=== PATIENT | female | born 1945 | race Two or more races ===

== ENCOUNTER → 2017-09-29 | Outpatient (CLI) | payer OTHER, MEDICAID ==
[~2017-09-29] VITALS: Ht 152.4 cm; Wt 62.6 kg
[~2017-09-29] MED LIST: ADENOSINE 53 MG in GIVE UN-DILUTED 0 ML IV ONE; ADENOSINE 90 MG/30 ML INJ IV ONE; ASPI81CH43 PO; CLON1TAB4 PO; FLUO20CA90 PO; FOLI1TAB6 PO; HYDR-4683 PO; LISI10TA6 PO; OXAP-61 PO; SIMV10TA84 PO
== END | disposition home or self-care (01) ==
LOC: Rad HDHVI 10:29
PROVIDERS: ATTEND Internal Medicine Cardiovascular Disease
DX: I10 Essential (primary) hypertension (principal); D56.9 Thalassemia, unspecified; R60.9 Edema, unspecified; R06.02 Shortness of breath
CPT/HCPCS: 78452; 93005; 96374; 96375; A9500; J0153

== ENCOUNTER → 2017-12-15 | Outpatient (CLI) | payer MEDICARE, MEDICAID ==
[~2017-12-15] MED LIST changes: -ADENOSINE 53 MG in GIVE UN-DILUTED 0 ML IV ONE; -ADENOSINE 90 MG/30 ML INJ IV ONE; +IOHEXOL 350 MG/ML 100ML IJ ONE
[2017-12-15 15:50] VITALS: BP 140/67
[2017-12-15 16:19] VITALS: BP 119/68
== END | disposition home or self-care (01) ==
LOC: Rad HDHVI 15:42
PROVIDERS: ATTEND Internal Medicine Cardiovascular Disease
DX: G93.89 Other specified disorders of brain (principal); I67.2 Cerebral atherosclerosis
CPT/HCPCS: 70470; 82565; G0463; Q9967

== ENCOUNTER → 2017-12-31 | Outpatient (CLI) | payer MEDICARE, MEDICAID ==
[~2017-12-31] MED LIST changes: -IOHEXOL 350 MG/ML 100ML IJ ONE
== END | disposition home or self-care (01) ==
LOC: Rad HDHVI 10:25
PROVIDERS: ATTEND Internal Medicine Cardiovascular Disease
DX: I08.8 Other rheumatic multiple valve diseases (principal); I42.0 Dilated cardiomyopathy; R06.02 Shortness of breath
CPT/HCPCS: 93306

== ENCOUNTER → 2018-06-29 | Outpatient (CLI) | payer MEDICARE, MEDICAID | END | disposition home or self-care (01) | LOC: Rad HDHVI 11:05 | PROVIDERS: ATTEND Internal Medicine Cardiovascular Disease | DX: I70.201 Unspecified atherosclerosis of native arteries of extremities, right leg (principal); M25.461 Effusion, right knee; M85.861 Other specified disorders of bone density and structure, right lower leg; K57.30 Diverticulosis of large intestine without perforation or abscess without bleeding | CPT/HCPCS: 73700 ==

== ENCOUNTER → 2018-07-22 | Outpatient (CLI) | payer MEDICARE, MEDICAID ==
[~2018-07-22] VITALS: Ht 152.4 cm; Wt 53.5 kg
[~2018-07-22] MED LIST changes: +ADENOSINE 45 MG in GIVE UN-DILUTED 0 ML IV ONE; +ADENOSINE 90 MG/30 ML INJ IV ONE
== END | disposition home or self-care (01) ==
LOC: Rad HDHVI 13:07
PROVIDERS: ATTEND Internal Medicine Cardiovascular Disease
DX: D56.9 Thalassemia, unspecified (principal); I11.0 Hypertensive heart disease with heart failure; I50.43 Acute on chronic combined systolic (congestive) and diastolic (congestive) heart failure; F09 Unspecified mental disorder due to known physiological condition; I42.0 Dilated cardiomyopathy; M25.561 Pain in right knee; R41.3 Other amnesia; M25.552 Pain in left hip; R00.2 Palpitations
CPT/HCPCS: 78452; 93005; 96374; 96375; A9500; J0153

== ENCOUNTER → 2018-09-02 | Outpatient (CLI) | payer MEDICARE, MEDICAID ==
[~2018-09-02] MED LIST changes: -ADENOSINE 45 MG in GIVE UN-DILUTED 0 ML IV ONE; -ADENOSINE 90 MG/30 ML INJ IV ONE
[2018-09-02 16:11] LABS: Basophils # (auto) 0.1 uL; Eosinophils # (auto) 0.2 uL; Monocytes # (auto) 0.6 uL
[2018-09-02 16:13] LABS: Basophils % (auto) 1.3 % (0.0-2.0); Hematocrit 30.9 % (36.0-46.0); Hemoglobin 9.4 g/dL (12.2-16.2); Lymphocytes # (auto) 1.7 uL; Lymphocytes % (auto) 29.5 % (10.0-50.0); Mean Corpuscular Hemoglobin 19.5 pg (28.0-32.0); Mean Corpuscular Hgb Conc. 30.6 g/dL (32.0-36.0); Mean Corpuscular Volume 63.7 fL (80.0-100.0); Neutrophils # (auto) 3.3 uL; Neutrophils % (auto) 56.2 % (37.0-80.0); Nucleated Red Blood Cells % 0.4 %; Platelet Count (auto) 379 10^3/uL (140-450); Red Blood Cells 4.84 10^6/uL (4.0-5.20); Red Cell Distribution Width 18.1 % (11.8-14.3); White Blood Cell 5.8 10^3/uL (4.4-10.8)
[2018-09-02 16:20] LABS: Albumin 4.2 g/dL (3.4-5.0); Calcium 9.2 mg/dL (8.5-10.1); Potassium 4.2 mmol/L (3.5-5.1); Urine Blood TRACE /uL (Negative); Urine Specific Gravity 1.025 (1.001-1.035)
[2018-09-02 16:29] LABS: BUN/Creatinine Ratio 35.9; Bilirubin, Total 0.6 mg/dL (0.2-1.0); Free T4 (Free Thyroxine) 1.17 ng/dL (0.89-1.76); Total Protein 7.1 g/dL (6.4-8.2)
== END | disposition home or self-care (01) ==
LOC: LAB 10:50
PROVIDERS: ATTEND Internal Medicine Cardiovascular Disease
DX: E03.9 Hypothyroidism, unspecified (principal); E55.9 Vitamin D deficiency, unspecified; N39.0 Urinary tract infection, site not specified; D51.9 Vitamin B12 deficiency anemia, unspecified; Z79.899 Other long term (current) drug therapy
CPT/HCPCS: 36415; 80053; 80061; 81003; 82306; 82607; 83036; 84439; 84443; 85025; 87086

== ENCOUNTER → 2018-09-08 | Outpatient (CLI) | payer MEDICARE, MEDICAID | END | disposition home or self-care (01) | LOC: Rad HDHVI 11:33 | PROVIDERS: ATTEND Internal Medicine Cardiovascular Disease | DX: K57.30 Diverticulosis of large intestine without perforation or abscess without bleeding (principal); K76.9 Liver disease, unspecified; I70.0 Atherosclerosis of aorta | CPT/HCPCS: 74176 ==

== ENCOUNTER → 2018-09-21 | Outpatient (CLI) | payer MEDICARE, MEDICAID ==
[~2018-09-21] MED LIST changes: +CLON1TAB10 PO; -CLON1TAB4 PO; -HYDR-4683 PO; +HYDR-4833 PO
[2018-09-21 16:12] LABS: % Iron Saturation 19.4 % (15-50)
== END | disposition home or self-care (01) ==
LOC: Rad HDHVI 11:07
PROVIDERS: ATTEND Internal Medicine Cardiovascular Disease
DX: M85.9 Disorder of bone density and structure, unspecified (principal); R53.83 Other fatigue; R79.89 Other specified abnormal findings of blood chemistry
CPT/HCPCS: 77078; 82728; 83540; 83550

== ENCOUNTER → 2018-10-21 | Outpatient (CLI) | payer MEDICARE, MEDICAID | END | disposition home or self-care (01) | LOC: Rad HDHVI 11:08 | PROVIDERS: ATTEND Internal Medicine Cardiovascular Disease | DX: R53.1 Weakness (principal); R00.2 Palpitations; I10 Essential (primary) hypertension | CPT/HCPCS: 93880 ==

== ENCOUNTER → 2018-11-20 | Outpatient (CLI) | payer MEDICARE, MEDICAID ==
[~2018-11-20] MED LIST changes: +IOHEXOL 350 MG/ML 100ML IJ ONE
[2018-11-20 11:25] VITALS: BP 116/52
--- NOTE | 2018-11-20 12:50 | NUR ---
IN TO CLINIC FOR CT HEAD. IV insertion IV access obtained, via clean sterile technique by inserting 22 gauge catheter at after attempt(s). IV secured properly. No trauma to site. Patient tolerated procedure well.LABS DRAWN AND SENT FOR STAT RESULTS. CREATININE RETURNED AT 0.68. TO CT SCAN AND TOLERATED WELL. IV SITE DCD AND BENIGN POST USE. DISCHARGED TO SELF CARE IN NO DISTRESS .
[2018-11-20 12:51] VITALS: BP 148/56
== END | disposition home or self-care (01) ==
LOC: Rad HDHVI 11:14
PROVIDERS: ATTEND Internal Medicine Cardiovascular Disease
DX: I67.2 Cerebral atherosclerosis (principal); R94.4 Abnormal results of kidney function studies; R41.3 Other amnesia
CPT/HCPCS: 36415; 70470; 82565; G0463; Q9967

== ENCOUNTER → 2018-12-21 | Outpatient (CLI) | payer MEDICARE, MEDICAID ==
[~2018-12-21] MED LIST changes: -IOHEXOL 350 MG/ML 100ML IJ ONE
[2018-12-21 13:00] VITALS: BP 148/70
--- NOTE | 2018-12-21 13:00 | NUR ---
Signature Attestation Statement: I HARIS MCCLOUD performed this procedure EECP on this patient. Addendum: 12/21/18 at 1301 by HARIS MCCLOUD [id number] Amended: Links added.
--- NOTE | 2018-12-21 13:06 | NUR ---
Signature Attestation Statement: I HARIS MCCLOUD performed this procedure EECP on this patient. Addendum: 12/21/18 at 1307 by HARIS MCCLOUD [id number] Amended: Links added.
[2018-12-21 13:07] VITALS: BP 144/70
--- NOTE | 2018-12-21 13:08 | NUR ---
Signature Attestation Statement: I HARIS MCCLOUD performed this procedure EECP on this patient. Addendum: 12/21/18 at 1308 by HARIS MCCLOUD [id number] Amended: Links added.
== END | disposition home or self-care (01) ==
LOC: CHF HDHVI 11:00
PROVIDERS: ATTEND Internal Medicine Cardiovascular Disease
DX: I25.708 Atherosclerosis of coronary artery bypass graft(s), unspecified, with other forms of angina pectoris (principal); I11.0 Hypertensive heart disease with heart failure; I50.42 Chronic combined systolic (congestive) and diastolic (congestive) heart failure; I63.9 Cerebral infarction, unspecified; I63.81 Other cerebral infarction due to occlusion or stenosis of small artery; E78.5 Hyperlipidemia, unspecified; Z95.1 Presence of aortocoronary bypass graft
CPT/HCPCS: G0166

== ENCOUNTER 2019-03-31 13:26 | Emergency (ER) | payer MEDICARE, MEDICAID ==
[~2019-03-31] VITALS: Ht 152.4 cm; Wt 47.6 kg
[2019-03-31] MEDS ORDERED: SODIUM CHLORIDE 0.9% 1,000 ML IV ONE ×2 (14:15→15:12)
[2019-03-31 15:01] LABS: Mean Corpuscular Hgb Conc. 31.1 g/dL (32.0-36.0)
[2019-03-31 15:02] LABS: Hematocrit 35.3 % (36.0-46.0); Mean Corpuscular Hemoglobin 19.3 pg (28.0-32.0); Mean Corpuscular Volume 62.1 fL (80.0-100.0); Platelet Count (auto) 380 10^3/uL (140-450); Red Blood Cells 5.69 10^6/uL (4.0-5.20); Red Cell Distribution Width 17.1 % (11.8-14.3); White Blood Cell 11.2 10^3/uL (4.4-10.8)
[2019-03-31 15:11] LABS: Albumin 4.1 g/dL (3.4-5.0); Anion Gap 12 (5-15); Blood Urea Nitrogen 25 mg/dL (7-18); Calcium 8.6 mg/dL (8.5-10.1); Carbon Dioxide 22 mmol/L (21-32); Chloride 108 mmol/L (98-107); Glucose 78 mg/dL (74-106); Potassium 3.5 mmol/L (3.5-5.1); Sodium 142 mmol/L (136-145)
[2019-03-31] MEDS ORDERED: SODIUM CHLORIDE 0.9% 1,000 ML IVB ONE (15:12)
[2019-03-31 15:14] LABS: Alanine Aminotransferase 16 U/L (13-56); Aspartate Aminotransferase 17 U/L (15-37); BUN/Creatinine Ratio 29.8; Basophils % (manual) 0 (0.0-2.0); Blast Cells 0; Eosinophils % (manual) 0 (0-7); GFR African American 85 mL/min; GFR Non-African American 70 mL/min; Metamyelocytes % 0; Myelocytes % 0; Promyelocytes % 0; Reactive Lymphocytes 0
[2019-03-31 15:20] LABS: Alkaline Phosphatase 42 U/L (45-117); Bilirubin, Total 0.6 mg/dL (0.2-1.0); Total Protein 7.3 g/dL (6.4-8.2)
[2019-03-31 16:48] LABS: Lymphocytes % (manual) 16 (10.0-50.0); Monocytes % (manual) 4 (0-12)
[2019-03-31 16:49] LABS: Band Neutrophils % (manual) 0
[2019-03-31 19:02] LABS: Urine Bacteria NONE SEEN /hpf (None Seen); Urine Blood Negative /uL (Negative); Urine Hyaline Cast MOD /lpf (0 - 2); Urine Mucus FEW (None Seen); Urine Specific Gravity 1.013 (1.001-1.035); Urine WBC 2 /hpf (0 - 5)
[2019-03-31 19:30] VITALS: BP 103/43
== END 2019-03-31 20:31 | disposition home or self-care (01) ==
LOC: ER 13:26
DX: S33.5XXA Sprain of ligaments of lumbar spine, initial encounter (principal); E87.6 Hypokalemia; R19.7 Diarrhea, unspecified; E78.5 Hyperlipidemia, unspecified; I10 Essential (primary) hypertension; Z79.899 Other long term (current) drug therapy; X58.XXXA Exposure to other specified factors, initial encounter; Y93.89 Activity, other specified; Y92.89 Other specified places as the place of occurrence of the external cause; Y99.8 Other external cause status
CPT/HCPCS: 36415; 71046; 72131; 80053; 81001; 83735; 84443; 84484; 85007; 85027; 93005; 96360; 99284; J7030

== ENCOUNTER → 2019-05-10 | Outpatient (CLI) | payer MEDICARE, MEDICAID ==
[2019-05-10 12:02] LABS: Urine Blood Negative /uL (Negative); Urine Specific Gravity 1.021 (1.001-1.035)
[2019-05-10 12:11] LABS: Potassium 3.8 mmol/L (3.5-5.1)
[2019-05-10 12:15] LABS: Basophils # (auto) 0.1 10 ^3/uL (0-0.2); Basophils % (auto) 1.3 % (0.0-2.0); Eosinophils # (auto) 0.2 10 ^3/uL (0-0.8); Eosinophils % (auto) 2.4 % (0.0-7.0); Hematocrit 31.6 % (36.0-46.0); Hemoglobin 9.8 g/dL (12.2-16.2); Lymphocytes # (auto) 2.8 10 ^3/uL (0.4-5.4); Lymphocytes % (auto) 40.9 % (10.0-50.0); Mean Corpuscular Hemoglobin 19.3 pg (28.0-32.0); Mean Corpuscular Hgb Conc. 31.1 g/dL (32.0-36.0); Mean Corpuscular Volume 62.2 fL (80.0-100.0); Monocytes # (auto) 0.4 10 ^3/uL (0-1.3); Monocytes % (auto) 5.2 % (0.0-12.0); Neutrophils # (auto) 3.5 10 ^3/uL (1.6-8.6); Neutrophils % (auto) 50.2 % (37.0-80.0); Nucleated Red Blood Cells % 0.2 %; Platelet Count (auto) 432 10^3/uL (140-450); Red Blood Cells 5.08 10^6/uL (4.0-5.20); Red Cell Distribution Width 17.2 % (11.8-14.3); White Blood Cell 6.9 10^3/uL (4.4-10.8)
[2019-05-10 12:20] LABS: Free T4 (Free Thyroxine) 1.1 ng/dL (0.89-1.76)
[2019-05-10 12:21] LABS: BUN/Creatinine Ratio 28.6; Bilirubin, Total 0.5 mg/dL (0.2-1.0); Calcium 8.9 mg/dL (8.5-10.1)
== END | disposition home or self-care (01) ==
LOC: LAB 09:52
PROVIDERS: ATTEND Internal Medicine Cardiovascular Disease
DX: E03.9 Hypothyroidism, unspecified (principal); K90.9 Intestinal malabsorption, unspecified; N39.0 Urinary tract infection, site not specified; D51.9 Vitamin B12 deficiency anemia, unspecified; Z79.899 Other long term (current) drug therapy
CPT/HCPCS: 36415; 80053; 80061; 81003; 82306; 82607; 83036; 84439; 84443; 85025; 87086

== ENCOUNTER → 2019-05-24 | Outpatient (CLI) | payer MEDICARE, MEDICAID | END | disposition home or self-care (01) | LOC: Rad HDHVI 15:38 | PROVIDERS: ATTEND Internal Medicine Cardiovascular Disease | DX: M12.88 Other specific arthropathies, not elsewhere classified, other specified site (principal); M48.02 Spinal stenosis, cervical region; K57.30 Diverticulosis of large intestine without perforation or abscess without bleeding; M51.86 Other intervertebral disc disorders, lumbar region | CPT/HCPCS: 72131; 73700 ==

== ENCOUNTER → 2019-05-27 | Outpatient (CLI) | payer MEDICARE, MEDICAID ==
[2019-05-27 14:29] VITALS: BP 124/61
--- NOTE | 2019-05-27 15:15 | NUR ---
Discharge Instructions See e-MAR for any mediations given with this visit. Patient education given on disease process. Patient verbalized understanding. Previous labs reviewed. Patient discharged in stable condition with after care instructions and follow up appointment. COPY OF EKG GIVEN TO PT AND F/U APPOINTMENT MADE ON 06/04/19 @3907
[2019-05-27 17:23] VITALS: BP 130/60
--- NOTE | 2019-05-28 14:29 | NUR ---
CHF PT ARRIVED TO THE CHF CLINIC FOR TREATMENT REGARDING PALPITATIONS. A/O X4. Addendum: 05/28/19 at 1451 by MARIAN ESTEVES RN RN [place] 05/27/19
--- NOTE | 2019-05-28 14:30 | NUR ---
MD at bedside. MD at bedside for evaluation and treatment for acute episode. Further orders received and carried out. PER MD ORDERS EKG DONE AT BEDSIDE. MD ALSO DID MEDICATION RECONCILIATION WITH PATIENT Addendum: 05/28/19 at 1451 by MARIAN ESTEVES RN RN [place] 05/27/19 Addendum: 05/28/19 at 1459 by MARIAN ESTEVES RN RN [place] EKG SHOWS NSR WITH BBB
== END | disposition home or self-care (01) ==
LOC: CHF HDHVI 14:16
PROVIDERS: ATTEND Internal Medicine Cardiovascular Disease
DX: R00.2 Palpitations (principal)
CPT/HCPCS: G0463

== ENCOUNTER → 2019-06-21 | Outpatient (CLI) | payer MEDICARE, MEDICAID ==
[~2019-06-21] MED LIST changes: +IBUP800T24 PO; +ICOS1CAP PO; +LISI-648 PO; -LISI10TA6 PO; +POTA10TA32 PO; +SACU1TAB PO
== END | disposition home or self-care (01) ==
LOC: RADONC 13:05
PROVIDERS: ATTEND Internal Medicine Cardiovascular Disease
DX: M19.011 Primary osteoarthritis, right shoulder (principal); M25.519 Pain in unspecified shoulder
CPT/HCPCS: 73030

== ENCOUNTER → 2019-08-20 | Emergency (ER) | payer MEDICARE, MEDICAID ==
[~2019-08-20] VITALS: Ht 154.9 cm; Wt 45.4 kg
[~2019-08-20] MED LIST changes: +ACET1CAP14 PO; +PANT40TA2 PO
[2019-08-20 12:27] LABS: Eosinophils # (auto) 0.1 10 ^3/uL (0-0.8); Monocytes # (auto) 0.6 10 ^3/uL (0-1.3); Monocytes % (auto) 9.7 % (0.0-12.0); Nucleated Red Blood Cells % 0.2 %
[2019-08-20 12:31] LABS: Basophils # (auto) 0 10 ^3/uL (0-0.2); Basophils % (auto) 0.7 % (0.0-2.0); Eosinophils % (auto) 1.5 % (0.0-7.0); Hematocrit 32.7 % (36.0-46.0); Hemoglobin 10.3 g/dL (12.2-16.2); Lymphocytes # (auto) 1.6 10 ^3/uL (0.4-5.4); Lymphocytes % (auto) 25.2 % (10.0-50.0); Mean Corpuscular Hemoglobin 19.7 pg (28.0-32.0); Mean Corpuscular Hgb Conc. 31.5 g/dL (32.0-36.0); Mean Corpuscular Volume 62.6 fL (80.0-100.0); Neutrophils # (auto) 3.9 10 ^3/uL (1.6-8.6); Neutrophils % (auto) 62.9 % (37.0-80.0); Platelet Count (auto) 355 10^3/uL (140-450); Red Blood Cells 5.22 10^6/uL (4.0-5.20); Red Cell Distribution Width 16.2 % (11.8-14.3); White Blood Cell 6.2 10^3/uL (4.4-10.8)
[2019-08-20 12:43] LABS: Alanine Aminotransferase 19 U/L (13-56); Albumin 3.9 g/dL (3.4-5.0); Anion Gap 9 (5-15); Aspartate Aminotransferase 16 U/L (15-37); BUN/Creatinine Ratio 47.8; Blood Urea Nitrogen 32 mg/dL (7-18); Calcium 8.9 mg/dL (8.5-10.1); Carbon Dioxide 21 mmol/L (21-32); Chloride 109 mmol/L (98-107); GFR African American 110 mL/min; GFR Non-African American 91 mL/min; Glucose 101 mg/dL (74-106); Magnesium 2.3 mg/dL (1.6-2.6); Sodium 139 mmol/L (136-145)
[2019-08-20 12:48] LABS: Alkaline Phosphatase 35 U/L (45-117); Bilirubin, Total 0.6 mg/dL (0.2-1.0); Total Protein 6.7 g/dL (6.4-8.2)
[2019-08-20 13:20] LABS: INR 1.01 (0.9-1.15)
[2019-08-20 13:43] VITALS: BP 99/63
[2019-08-20 15:09] LABS: Urine Bacteria NONE SEEN /hpf (None Seen); Urine Blood Negative /uL (Negative); Urine Specific Gravity 1.011 (1.001-1.035); Urine WBC <1 /hpf (0 - 5)
== END | disposition home or self-care (01) ==
LOC: ER 11:22
DX: E86.0 Dehydration (principal); I95.9 Hypotension, unspecified; I10 Essential (primary) hypertension; E78.5 Hyperlipidemia, unspecified
CPT/HCPCS: 36415; 70450; 71045; 80053; 81001; 83735; 84484; 85025; 85610; 93005

== ENCOUNTER → 2019-09-20 | Outpatient (CLI) | payer MEDICARE, MEDICAID ==
[~2019-09-20] MED LIST changes: -ACET1CAP14 PO; -IBUP800T24 PO; -ICOS1CAP PO; -LISI-648 PO; +LISI10TA6 PO; -PANT40TA2 PO; -POTA10TA32 PO; -SACU1TAB PO
== END | disposition home or self-care (01) ==
LOC: Rad HDHVI 11:42
PROVIDERS: ATTEND Internal Medicine Cardiovascular Disease
DX: M19.011 Primary osteoarthritis, right shoulder (principal); M25.511 Pain in right shoulder
CPT/HCPCS: 73030

== ENCOUNTER 2019-11-22 11:59 | Inpatient (IN) | payer MEDICARE, MEDICAID ==
[~2019-11-22] VITALS: Ht 154.9 cm; Wt 45.1 kg
[~2019-11-22 11:59] MED LIST changes: +LISI-648 PO; -LISI10TA6 PO
[2019-11-22 14:06] LABS: Eosinophils # (auto) 0 10 ^3/uL (0-0.8); Eosinophils % (auto) 0.2 % (0.0-7.0); Nucleated Red Blood Cells % 0.1 %; Red Blood Cells 2.86 10^6/uL (4.0-5.20)
[2019-11-22 14:08] LABS: Basophils # (auto) 0 10 ^3/uL (0-0.2); Basophils % (auto) 0.4 % (0.0-2.0); Hematocrit 17.7 % (36.0-46.0); Lymphocytes # (auto) 0.8 10 ^3/uL (0.4-5.4); Lymphocytes % (auto) 7.7 % (10.0-50.0); Mean Corpuscular Hemoglobin 19.8 pg (28.0-32.0); Mean Corpuscular Volume 61.8 fL (80.0-100.0); Monocytes % (auto) 9.6 % (0.0-12.0); Neutrophils % (auto) 82.1 % (37.0-80.0); Platelet Count (auto) 614 10^3/uL (140-450); Red Cell Distribution Width 18.9 % (11.8-14.3); White Blood Cell 10.9 10^3/uL (4.4-10.8)
[2019-11-22 14:12] LABS: Hemoglobin 5.6 g/dL (12.2-16.2)
[2019-11-22 14:23] LABS: Albumin 3.2 g/dL (3.4-5.0); Anion Gap 9 (5-15); Blood Urea Nitrogen 46 mg/dL (7-18); Carbon Dioxide 22 mmol/L (21-32); Chloride 106 mmol/L (98-107); Glucose 115 mg/dL (74-106); Potassium 4.1 mmol/L (3.5-5.1); Sodium 137 mmol/L (136-145)
[2019-11-22 14:28] LABS: Alanine Aminotransferase 10 U/L (13-56); Alkaline Phosphatase 30 U/L (45-117); Aspartate Aminotransferase 11 U/L (15-37); Bilirubin, Total 0.3 mg/dL (0.2-1.0); GFR African American 77 mL/min; GFR Non-African American 63 mL/min
[2019-11-22] MEDS ORDERED: MORPHINE SULF INJ 2 MG/ML SYRINGE 1ML IV PRN (16:15)
[2019-11-22] MEDS ORDERED: NITROGLYCERIN 0.4 MG SL TAB SL PRN (16:15)
[2019-11-22] MEDS ORDERED: DOCUSATE SOD 100 MG CAP PO PRN (16:15)
[2019-11-22] MEDS ORDERED: ONDANSETRON HCL 4 MG/2 ML VIAL IV PRN (16:15)
[2019-11-22] MEDS ORDERED: SACU1TAB PO (16:58)
[2019-11-22] MEDS ORDERED: ICOS1CAP PO (16:58)
[2019-11-22 17:21] LABS: Urine Bacteria FEW /hpf (None Seen); Urine Blood Negative /uL (Negative); Urine Mucus FEW (None Seen); Urine Specific Gravity 1.018 (1.001-1.035); Urine WBC 9 /hpf (0 - 5)
[2019-11-22 18:19] VITALS: BP 129/70
[2019-11-22] MEDS ORDERED: IBUP800T24 PO (18:21)
[2019-11-22] MEDS ORDERED: POTA10TA32 PO (18:21)
[2019-11-22 18:34] VITALS: BP 136/75
--- NOTE | 2019-11-22 19:10 | NUR ---
Telemetry admit from ER ALYSHA TREJOONSINA admitted to Telemetry unit after SBAR received. Patient oriented to DONALD EUGENE, RN primary RN, unit, room, bed, and unit policies regarding patient care and visiting hours. Patient now on continuous telemetry monitoring, tele box # 51 and telemetry reading on arrival to unit is sinus rhythm. Patient weighed by bedscale and encouraged to call if they need something. All questions and concerns addressed, patient verbalized understanding.
[2019-11-22 19:34] VITALS: BP 119/60
--- NOTE | 2019-11-22 19:40 | NUR ---
CLOSING NOTE ENDORSED CARE TO NOC SHIFT RN
--- NOTE | 2019-11-22 19:58 | NUR ---
Opening Shift Note Assumed care of patient from day shift Raphael JESUS. Patient awake and alert. 1U RBC infusing at 125ml/hr. No S/S of distress/SOB or pain. Bed locked in lowest position, bed rails up X2, call light within reach, bed alarm on. Instructed on POC and to call for assist PRN, will continue to monitor for changes Q1hr and PRN.
[2019-11-22 20:00] VITALS: BP 122/67
[2019-11-22 20:34] VITALS: BP 122/67
[2019-11-22] MEDS: ACETAMINOPHEN 325 MG TAB PO PRN (20:56)
[2019-11-22] MEDS: EPA ETHYL ESTER 1 GM PO SCH (22:00)
[2019-11-22] MEDS ORDERED: SACUBITRIL-VALSARTAN 24mg/26mg TAB PO SCH (22:00)
[2019-11-22 22:19] LABS: Hemoglobin 7.1 g/dL (12.2-16.2)
[2019-11-22 22:21] LABS: Hematocrit 21.1 % (36.0-46.0)
--- NOTE | 2019-11-22 22:40 | NUR ---
PATIENT STATUS PATIENT STATES "I NEED TO FIND MY ROOM, THIS IS NOT MY HOME". PATIENT WALKING OUT TO HALLWAY STATING "I AM GOING HOME". WILL CHANGE PATIENTS ROOM TO 289A WITH A SITTER.
--- NOTE | 2019-11-22 23:00 | NUR ---
ROOM CHANGE MOVED PATIENT FROM ROOM 278B TO 289A. SITTER AT BEDSIDE.
[2019-11-23] VITALS (12 sets, daily range): BP systolic 91–139; BP diastolic 56–79
--- NOTE | 2019-11-23 | NUR ---
LAB PATIENT REFUSED LAB
[2019-11-23] MEDS: cefTRIAXone 1GM/50ML D5W 50 ML IV SCH ×2 (00:08→20:51)
[2019-11-23 07:07] LABS: Basophils # (auto) 0 10 ^3/uL (0-0.2); Basophils % (auto) 0.3 % (0.0-2.0); Eosinophils # (auto) 0 10 ^3/uL (0-0.8); Eosinophils % (auto) 0.5 % (0.0-7.0); Hematocrit 21.7 % (36.0-46.0); Lymphocytes # (auto) 1.1 10 ^3/uL (0.4-5.4); Lymphocytes % (auto) 10.6 % (10.0-50.0); Mean Corpuscular Hemoglobin 20.9 pg (28.0-32.0); Mean Corpuscular Hgb Conc. 31.9 g/dL (32.0-36.0); Mean Corpuscular Volume 65.6 fL (80.0-100.0); Monocytes # (auto) 1.2 10 ^3/uL (0-1.3); Monocytes % (auto) 11.4 % (0.0-12.0); Neutrophils # (auto) 7.9 10 ^3/uL (1.6-8.6); Neutrophils % (auto) 77.2 % (37.0-80.0); Nucleated Red Blood Cells % 0.1 %; Platelet Count (auto) 564 10^3/uL (140-450); Potassium 3.9 mmol/L (3.5-5.1); White Blood Cell 10.2 10^3/uL (4.4-10.8)
[2019-11-23 07:22] LABS: BUN/Creatinine Ratio 53.3; Bilirubin, Total 0.2 mg/dL (0.2-1.0); Calcium 8.7 mg/dL (8.5-10.1); Total Protein 6.3 g/dL (6.4-8.2)
[2019-11-23 07:26] LABS: % Iron Saturation 13.2 % (15-50)
--- NOTE | 2019-11-23 07:35 | NUR ---
ENDORSED CARE TO DAY SHIFT BERTA. BED LOCKED IN LOWEST POSITION, SIDE RAILS UP X2, CALL LIGHT WITHIN REACH. NO SIGNS OF DISTRESS/ SOB.
[2019-11-23 08:04] LABS: Hemoglobin 6.9 g/dL (12.2-16.2); Red Cell Distribution Width 21.4 % (11.8-14.3)
[2019-11-23] MEDS: EPA ETHYL ESTER 1 GM PO SCH ×2 (10:00→21:02)
[2019-11-23] MEDS ORDERED: ASPirin 81 mg TAB PO SCH (10:00)
[2019-11-23] MEDS ORDERED: HYDROmorphone HCL 2 MG/ML VL IV ONE (10:30)
[2019-11-23] MEDS: PANTOPRAZOLE 40 MG/10 ML VIAL INJ IV SCH ×2 (10:42→20:50)
[2019-11-23] MEDS ORDERED: SODIUM FERR GLUC 62.5MG/5ML 125 MG in SODIUM CHL 0.9% 100 ML IV ONE (13:30)
[2019-11-23] MEDS: CYANOCOBALAMIN (B-12) 1000 MCG/1 ML VIAL SUBCUT SCH (13:31)
--- NOTE | 2019-11-23 19:20 | NUR ---
Opening Shift Note Assumed care of patient, awake and alert. Blood transfusion currently running, vitals signs 108/60, 98.3 temp, 70 bpm, 16 rr, 100% oxygen saturation on room air. No S/S of distress/SOB or pain. Bed locked in lowest position, side rails up x2, call light within reach. Instructed on POC and to call for assist PRN, will continue to monitor for changes Q1hr and PRN.
[2019-11-23] MEDS: SUCRALFATE 1 GM/10 ML ORAL SUSP PO SCH (21:19)
--- NOTE | 2019-11-23 23:30 | NUR ---
LAB PATIENT REFUSED BLOOD DRAW FROM LAB. EDUCATED ON THE NEED FOR BLOOD DRAW AND PATIENT STATES "I DO NOT FEEL COMFORTABLE WITH HIM TAKING MY BLOOD"
[2019-11-24] MEDS: SUCRALFATE 1 GM/10 ML ORAL SUSP PO SCH ×5 (05:08→22:00)
[2019-11-24 05:30] VITALS: BP 139/79
--- NOTE | 2019-11-24 06:01 | NUR ---
LAB PATIENT REFUSED LAB. EDUCATED ON IMPORTANCE OF BLOOD DRAW. PATIENT BECAME AGITATED AND CONTINUES TO REFUSE.
--- NOTE | 2019-11-24 07:30 | NUR ---
Endorsed care to Maria Del Rosario JESUS. Patient sitting at bed side. No signs of distress
--- NOTE | 2019-11-24 08:00 | NUR ---
Patient refuses to wear tele monitor, patient agitated will try again later, is aware.
[2019-11-24] MEDS: EPA ETHYL ESTER 1 GM PO SCH ×2 (08:08→21:23)
[2019-11-24] MEDS: PANTOPRAZOLE 40 MG/10 ML VIAL INJ IV SCH ×2 (08:08→21:23)
[2019-11-24] MEDS: CYANOCOBALAMIN (B-12) 1000 MCG/1 ML VIAL SUBCUT SCH (08:08)
[2019-11-24] MEDS: ALPRAZolam 0.25 MG TAB PO ONE ×2 (08:08→09:25)
--- NOTE | 2019-11-24 08:16 | NUR ---
Patient refuses to allow lab to draw blood. Patient also refusing to take xanax.
--- NOTE | 2019-11-24 10:11 | NUR ---
blood drawn by lab.
--- NOTE | 2019-11-24 10:11 | NUR ---
updated Dr Celestine Law on patient status (refusing treatment, may not allow the EGD).
[2019-11-24 10:46] LABS: Basophils # (auto) 0.1 10 ^3/uL (0-0.2); Basophils % (auto) 0.5 % (0.0-2.0); Eosinophils # (auto) 0.2 10 ^3/uL (0-0.8); Eosinophils % (auto) 1.9 % (0.0-7.0); Hematocrit 27.6 % (36.0-46.0); Hemoglobin 9.2 g/dL (12.2-16.2); Lymphocytes # (auto) 1.4 10 ^3/uL (0.4-5.4); Lymphocytes % (auto) 12.8 % (10.0-50.0); Mean Corpuscular Hemoglobin 23.1 pg (28.0-32.0); Mean Corpuscular Hgb Conc. 33.5 g/dL (32.0-36.0); Monocytes % (auto) 9.5 % (0.0-12.0); Neutrophils # (auto) 8.2 10 ^3/uL (1.6-8.6); Neutrophils % (auto) 75.3 % (37.0-80.0); Nucleated Red Blood Cells % 0.4 %; Platelet Count (auto) 662 10^3/uL (140-450); Red Cell Distribution Width 24.2 % (11.8-14.3); White Blood Cell 10.9 10^3/uL (4.4-10.8)
[2019-11-24 11:38] LABS: Folate (Folic Acid) > 24.00 ng/mL (5.38-24)
[2019-11-24] MEDS: SODIUM FERR GLUC 62.5MG/5ML 125 MG in SODIUM CHL 0.9% 100 ML IV SCH (11:59)
--- NOTE | 2019-11-24 12:00 | NUR ---
Patient continues off tele monitor, she states she doesn't want people watching her, educated but patient refuses. Dr henry.
[2019-11-24 12:21] LABS: INR 1.03 (0.9-1.15); Partial Thromboplastin Time 25.7 sec (23.0-31.2)
--- NOTE | 2019-11-24 12:30 | NUR ---
Patient verbalized willingness to do EGD. Patient oriented x2 at this time, person and place.
[2019-11-24] MEDS ORDERED: LIDOCAINE VISCOUS 2% 15ML UD ONE (12:34)
[2019-11-24] MEDS ORDERED: SODIUM CHLORIDE LOCK 10 ML ONE (12:34)
[2019-11-24] MEDS ORDERED: diphenhdrAMINE HCL 50 MG/1 ML VL ONE (12:35)
[2019-11-24 13:00] VITALS: BP 96/54
--- NOTE | 2019-11-24 13:35 | NUR ---
Patient taken down to EGD.
[2019-11-24] MEDS: fentaNYL CITRATE 100 MCG/2 ML VL ONE ×2 (14:28→14:30)
[2019-11-24] MEDS: MIDAZOLAM HCL 5 MG/ML-1ML VIAL ONE ×2 (14:28→14:35)
--- NOTE | 2019-11-24 15:00 | NUR ---
Patient back from EGD.
[2019-11-24 17:00] VITALS: BP 91/61
--- NOTE | 2019-11-24 19:10 | NUR ---
Opening Shift Note Assumed care of patient, awake and alert x2. No S/S of distress/SOB or pain. Confuse and agitated at this time. Going out of the room. Walking to the hallway without mask despite of education given. Patient said she doesn't want somebody on her house. Reorient the patient that she is at [facility]. Patient has a sitter. will continue to monitor for changes Q1hr and PRN.
--- NOTE | 2019-11-24 19:50 | NUR ---
Patient out of the room. confused, agitated and restless. Sitter also with the patient.
--- NOTE | 2019-11-24 20:30 | NUR ---
Paged the hosptalist. Waiting for callback.
--- NOTE | 2019-11-24 20:50 | NUR ---
Patient is restless and agitated, getting out of the room. So confused. Sitter and CN Charmaine with the patient right now.
--- NOTE | 2019-11-24 21:15 | NUR ---
Obtained medication order from hospitalist josé luis. Please see emar.
[2019-11-24] MEDS: cefTRIAXone 1GM/50ML D5W 50 ML IV SCH (21:23)
--- NOTE | 2019-11-24 22:22 | NUR ---
Patient asleep right now. Refused to take carafate due eli and josé luis.
[2019-11-24] MEDS: clonazePAM 0.5 MG TAB PO PRN (22:38)
--- NOTE | 2019-11-24 22:58 | NUR ---
Monitoring the patient. Patient asleep with sitter at bedside.
--- NOTE | 2019-11-25 01:25 | NUR ---
Placed back tele monitor. Patient no complains at this time.
[2019-11-25 05:00] VITALS: BP 115/66
--- NOTE | 2019-11-25 05:58 | NUR ---
PATIENT AWAKE. WALKING AROUND THE ROOM. CONFUSED. WITH SITTER INSIDE THE ROOM.
[2019-11-25] MEDS: SUCRALFATE 1 GM/10 ML ORAL SUSP PO SCH ×4 (06:14→21:30)
--- NOTE | 2019-11-25 06:45 | NUR ---
PATIENT RESTING IN BED. REFUSED SCHEDULED MEDS.
--- NOTE | 2019-11-25 06:56 | NUR ---
CLOSING SHIFT EVENT PATIENT RESTING IN BED RIGHT NOW. AWAKE AND RESPONSIVE. CONFUSED AND DISORIENTED. NO SOB AND NO ACUTE SIGNS OF DISTRESS. SITTER AT BEDSIDE. REPORT GIVEN.
--- NOTE | 2019-11-25 08:25 | NUR ---
Opening Shift Note Assumed care of patient, awake and alert using the restroom upon entering the room. A/O x 2. No S/S of distress/SOB or pain. Instructed on POC and to call for assist PRN. Patient verbalized understanding. Will continue to monitor for changes Q1hr and PRN.
[2019-11-25 09:00] VITALS: BP 118/67
[2019-11-25] MEDS: PANTOPRAZOLE 40 MG/10 ML VIAL INJ IV SCH ×2 (09:58→21:30)
[2019-11-25] MEDS: CYANOCOBALAMIN (B-12) 1000 MCG/1 ML VIAL SUBCUT SCH (09:59)
[2019-11-25] MEDS: EPA ETHYL ESTER 1 GM PO SCH ×2 (10:00→22:00)
[2019-11-25] MEDS: SODIUM FERR GLUC 62.5MG/5ML 125 MG in SODIUM CHL 0.9% 100 ML IV SCH (12:17)
[2019-11-25 12:48] VITALS: BP 101/62
--- NOTE | 2019-11-25 13:24 | NUR ---
IV removal IV DC'd with sterile technique due to infiltration. Catheter fully in tact. Ice packs were applied and the arm was elevated. 22g placed in right forearm with sterile technique. Patient tolerated procedure well. Iron infusion restarted. Will continue to monitor the patient. NOTE:
--- NOTE | 2019-11-25 16:02 | NUR ---
Nutrition Assessment Notes Please refer to link for full assessment notes. Est Energy needs: 996-1145 kcals (20-23 kcal/kgBW) Est Protein needs: 50-55 gms/day (1.0-1.1 gm/kgBW) Will continue to monitor and reassess prn. Addendum: 11/25/19 at [address] Amended: Links added.
[2019-11-25 16:33] VITALS: BP 102/60
--- NOTE | 2019-11-25 19:30 | NUR ---
OPENING SHIFT NOTE Pt is resting in bed with eyes open and resp rate is even and unlabored. No s/s of any distress noted at this time. POC discussed with pt and pt verbalizes understanding. Pt is forgetful and does need reinforcement. Sitter is at bedside for pt safety. Bed is low, wheels are locked, and call light is with in reach.
[2019-11-25 21:00] VITALS: BP 101/77
[2019-11-25] MEDS: ACETAMINOPHEN 325 MG TAB PO PRN (21:31)
[2019-11-26 04:40] VITALS: BP 112/70
--- NOTE | 2019-11-26 07:30 | NUR ---
Opening Shift Note Assumed care of patient, awake and alert. A/O x 2. No S/S of distress/SOB or pain. Instructed on POC and to call for assist PRN. Patient verbalized understanding. Sitter at bed side for safety. Will continue to monitor for changes Q1hr and PRN.
[2019-11-26 09:00] VITALS: BP 97/60
[2019-11-26 09:05] LABS: Basophils # (auto) 0 10 ^3/uL (0-0.2); Eosinophils # (auto) 0.2 10 ^3/uL (0-0.8); Hemoglobin 8.6 g/dL (12.2-16.2); Neutrophils # (auto) 8.1 10 ^3/uL (1.6-8.6); Nucleated Red Blood Cells % 0.1 %
[2019-11-26 09:07] LABS: Basophils % (auto) 0.5 % (0.0-2.0); Eosinophils % (auto) 1.8 % (0.0-7.0); Hematocrit 25.6 % (36.0-46.0); Lymphocytes # (auto) 1.3 10 ^3/uL (0.4-5.4); Lymphocytes % (auto) 12.1 % (10.0-50.0); Mean Corpuscular Hemoglobin 23.1 pg (28.0-32.0); Mean Corpuscular Hgb Conc. 33.5 g/dL (32.0-36.0); Mean Corpuscular Volume 69.1 fL (80.0-100.0); Monocytes # (auto) 0.7 10 ^3/uL (0-1.3); Monocytes % (auto) 7.2 % (0.0-12.0); Neutrophils % (auto) 78.4 % (37.0-80.0); Platelet Count (auto) 670 10^3/uL (140-450); White Blood Cell 10.4 10^3/uL (4.4-10.8)
[2019-11-26 09:14] LABS: Red Cell Distribution Width 25.3 % (11.8-14.3)
[2019-11-26] MEDS: SUCRALFATE 1 GM/10 ML ORAL SUSP PO SCH ×4 (09:15→22:02)
[2019-11-26] MEDS: PANTOPRAZOLE 40 MG/10 ML VIAL INJ IV SCH ×2 (09:15→22:02)
[2019-11-26] MEDS: EPA ETHYL ESTER 1 GM PO SCH ×2 (10:00→21:23)
--- NOTE | 2019-11-26 11:30 | NUR ---
Dr. Durham at bed side. New orders received. Refer to order hx.
[2019-11-26] MEDS: SODIUM FERR GLUC 62.5MG/5ML 125 MG in SODIUM CHL 0.9% 100 ML IV SCH (12:20)
[2019-11-26] MEDS: ACETAMINOPHEN 325 MG TAB PO PRN ×2 (13:01→22:03)
--- NOTE | 2019-11-26 14:10 | NUR ---
Assuming care of patient at this time, after receiving report from ANN MARIE Patterson.
--- NOTE | 2019-11-26 16:29 | NUR ---
Assessment Patient is a 74-year-old female who is alert and oriented. Patient primary language is Cypriot. Prior to admission patient lived home with family and functioned independently. Per patient she will return home to her prior living arrangements post discharge and family will transport her home. Patient does not need any medical equipment. Informed patient due to her health plan it does not cover the IV abx and doctor has been informed. Informed patient per doctor patient will stay here for her IV abx treatment. Advised patient to change her health plan to [facility]. Informed patient she has the right to participate in all discharge planning. Patient verbalized understanding and agreed to discharge plan. Addendum: 11/26/19 at 1631 by JEVON MARTÍNEZ Amended: Links added. Addendum: 11/29/19 at 0921 by JEVON MARTÍNEZ wrong patient
[2019-11-26 16:55] VITALS: BP 119/68
--- NOTE | 2019-11-26 19:02 | NUR ---
Closing Shift Note Assuming care of patient at this time. Patient resting in bed. No distress noted. Report given. Will endorse care to the night assistant RN. Sitter at bedside for safety.
--- NOTE | 2019-11-26 19:35 | NUR ---
OPENING SHIFT NOTE PT IS RESTING IN BED WITH EYES OPEN AND RESP RATE IS EVEN AND UNLABORED. NO S/S OF ANY DISTRESS NOTED. POC DISCUSSED WITH PT AND VERBALIZES UNDERSTANDING. PT IS FORGETFUL AND DOES NEED MUCH REINFORCEMENT. SITTER IS AT BEDSIDE FOR PT SAFETY. BED IS LOW, WHEELS ARE LOCKED, AND CALL LIGHT IS WITH IN REACH.
[2019-11-26 21:31] VITALS: BP 102/59
--- NOTE | 2019-11-26 22:18 | NUR ---
STAND BY ASSIST Addendum: 11/26/19 at 2219 by MARIAN VICTOR RN Amended: Links added.
--- NOTE | 2019-11-26 22:52 | NUR ---
RECEIVED A PHONE FROM [employer] SCIENTIST. SHE IS CONCERNED FOR PT SAFETY R/T PT LIVING ALONE. SS CONSULT PLACED AT THIS TIME PER NURSING PROTOCOL.
[2019-11-27] VITALS (12 sets, daily range): BP systolic 101–123; BP diastolic 52–84
[2019-11-27] MEDS: SUCRALFATE 1 GM/10 ML ORAL SUSP PO SCH ×4 (06:06→21:26)
[2019-11-27 06:58] LABS: Basophils # (auto) 0 10 ^3/uL (0-0.2); Eosinophils # (auto) 0.3 10 ^3/uL (0-0.8); Lymphocytes # (auto) 1.4 10 ^3/uL (0.4-5.4); Nucleated Red Blood Cells % 0.1 %
[2019-11-27 07:01] LABS: Basophils % (auto) 0.5 % (0.0-2.0); Eosinophils % (auto) 3.5 % (0.0-7.0); Hematocrit 20.7 % (36.0-46.0); Lymphocytes % (auto) 14.3 % (10.0-50.0); Mean Corpuscular Hemoglobin 23.4 pg (28.0-32.0); Mean Corpuscular Hgb Conc. 33.5 g/dL (32.0-36.0); Monocytes # (auto) 0.9 10 ^3/uL (0-1.3); Monocytes % (auto) 9.3 % (0.0-12.0); Neutrophils % (auto) 72.4 % (37.0-80.0); Platelet Count (auto) 528 10^3/uL (140-450); Red Blood Cells 2.96 10^6/uL (4.0-5.20); White Blood Cell 9.6 10^3/uL (4.4-10.8)
[2019-11-27 07:26] LABS: Calcium 8.4 mg/dL (8.5-10.1); Potassium 3.5 mmol/L (3.5-5.1)
[2019-11-27 07:28] LABS: Red Cell Distribution Width 25.2 % (11.8-14.3)
[2019-11-27 07:29] LABS: BUN/Creatinine Ratio 31.3
[2019-11-27 07:30] LABS: Hemoglobin 6.9 g/dL (12.2-16.2)
--- NOTE | 2019-11-27 07:30 | NUR ---
Morning note Patient resting in bed with even and unlabored respirations, no distress noted. Instructed patient on POC, fall precautions and to call for assistance as needed. Patient verbalized understanding although reinforcement will be required d/t confusion. Fall precautions in place with call light within reach.
--- NOTE | 2019-11-27 07:34 | NUR ---
RE: Critical Hgb Received critical Hgb level at 0730. Paged on-call hospitalist, Dr. Carranza at 0730. Received orders from Dr. Carranza at 0733. Order received and read back to verify.
--- NOTE | 2019-11-27 08:40 | NUR ---
RE: Blood transfusion/refused Patient A&Ox3 (Name/, place, time). Patient instructed on MD order and the need to obtain a type & screen. Patient refused. Patient stated "I don't feel like having that done right now. Today is Friday. On Friday I will go to my doctor and I'm sure he will take care of it then." Blood transfusion education provided to the patient. Patient verbalized understanding and continued to refuse.
[2019-11-27] MEDS: EPA ETHYL ESTER 1 GM PO SCH ×2 (10:00→22:00)
[2019-11-27] MEDS: PANTOPRAZOLE 40 MG/10 ML VIAL INJ IV SCH ×2 (10:23→21:25)
--- NOTE | 2019-11-27 11:07 | NUR ---
Family called for an update Yanna, patient's [id number], called for an update. Password obtained. Update provided. Phone call transferred to patient's phone at bedside.
[2019-11-27] MEDS: SODIUM FERR GLUC 62.5MG/5ML 125 MG in SODIUM CHL 0.9% 100 ML IV SCH (11:47)
[2019-11-27] MEDS: ACETAMINOPHEN 325 MG TAB PO PRN ×2 (11:47→21:27)
--- NOTE | 2019-11-27 12:48 | NUR ---
RE: Blood transfusion Patient stated "I'll take the blood now. They can do what they need to do." Called lab to have type & screen obtained. No answer at lab extension. home appliance tech paged by PBX.
--- NOTE | 2019-11-27 13:10 | NUR ---
Copy of [employer] Directive & Durable General Power of It Risk Analyst placed in chart Documentation received from
[2019-11-27 13:47] LABS: Hematocrit 21.2 % (36.0-46.0)
--- NOTE | 2019-11-27 17:43 | NUR ---
RE: Blood transfusion/Refusal Notified patient that blood product was ready for administration per MD order. Patient stated "Well, I don't think I want it. Can't my daughter give me her blood? I think I want to wait. Let me talk to my daughter or Yanna." This RN called Yanna via telephone. Password obtained. Updated Yanna on patient's refusal of blood product and request to speak to her daughter or Yanna. Yanna verbalized understanding and requested to speak to the patient. Phone call transferred to the patients phone at bedside.
--- NOTE | 2019-11-27 17:50 | NUR ---
Patient is agreeing to blood transfusion Patient spoke with Yanna and now agrees to receive blood transfusion. Staff member sent to receive unit of blood.
--- NOTE | 2019-11-27 18:27 | NUR ---
Blood transfusion started per MD order Patient stated "Yes, I will take the blood." Educated patient on blood transfusion order as well as reportable s/s of blood transfusion reaction. Patient verbalized understanding. VS obtained (refer to EMR). Respirations even and unlabored on room air, no distress noted. Fall precautions in place with call light within reach.
--- NOTE | 2019-11-27 18:39 | NUR ---
Blood transfusion continues per MD order Patient tolerating well. Patient denies s/s of transfusion reaction. IV site is patent with no s/s of leaking or infiltration noted. Patient resting in bed with even and unlabored respirations on room air, no distress noted. Patient instructed to notify staff immediately with any change in status. Patient verbalized understanding.
--- NOTE | 2019-11-27 18:59 | NUR ---
Closing note/Care endorsed Patient resting in bed with even and unlabored respirations on room air. Blood transfusion continues to infuse per MD order. Patient tolerating well with no s/s of blood transfusion reaction. Care endorsed to Veronica Hankins RN.
--- NOTE | 2019-11-27 19:15 | NUR ---
OPENING SHIFT NOTE Received report and assumed care of pt at this time. PRBC's infusing per orders. No adverse reaction noted. POC discussed with pt and pt verbalizes understanding. Will reinforce POC prn. Sitter at bedside for pt safety. Bed is low, wheels are locked, and call light is with in reach.
--- NOTE | 2019-11-27 21:20 | NUR ---
PRBC TRANSFUSION IS COMPLETE. NO ADVERSE REACTIONS NOTED.
[2019-11-27] MEDS: clonazePAM 0.5 MG TAB PO PRN (21:26)
--- NOTE | 2019-11-27 21:48 | NUR ---
Pt called for assist r/t IV is leaking. IV dc'd at this time with cath tip intact. Will start new IV.
--- NOTE | 2019-11-27 23:00 | NUR ---
22G IV STARTED IN LEFT HAND .
--- NOTE | 2019-11-28 00:14 | NUR ---
TRANSFERRED PT TO ROOM 294-A IN STABLE COND . PT TRANSFERRED TO COMBINE SITTER PATIENTS. PT OLE WELL.
--- NOTE | 2019-11-28 01:30 | NUR ---
PT BECOMING MORE AGITATED AND PULLED OUT IV AND CATH TIP IS INTACT. SITTER AT BEDSIDE.
--- NOTE | 2019-11-28 02:00 | NUR ---
PT IS STILL AGITATED AND IS AMB THE ROOM AND FOLDING UP ALL THE LINENS FROM HER BED. PT IS REFUSING NEW IV PLACEMENT.
--- NOTE | 2019-11-28 03:00 | NUR ---
PT IS STILL REFUSING NEW IV INSERTION STATING THAT , " i WILL JUST WAIT FOR THE DOCTOR TO DO IT." EXPLAINED TO PT THAT NURSES ARE TO INSERT THE IV SHE STATED , " NOT RIGHT NOW. MAYBE LATER." WILL ATTEMPT TO TRY AGAIN LATER.
--- NOTE | 2019-11-28 03:55 | NUR ---
PT STILL REFUSING NEW IV PLACEMENT.
--- NOTE | 2019-11-28 04:30 | NUR ---
PT IS RESTING WITH EYES CLOSED AND RESP RATE IS EVEN AND UNLABORED.
[2019-11-28 04:42] VITALS: BP 119/64
[2019-11-28 05:13] LABS: Hematocrit 23.5 % (36.0-46.0); Hemoglobin 7.9 g/dL (12.2-16.2)
--- NOTE | 2019-11-28 05:30 | NUR ---
PT APPEARS TO STILL BE ASLEEP. SHE IS RESTING IN BED WITH EYES CLOSED AND RESP RATE IS EVEN AND UNLABORED.
--- NOTE | 2019-11-28 06:24 | NUR ---
PT REFUSING CARAFATE THIS AM.
[2019-11-28] MEDS: SUCRALFATE 1 GM/10 ML ORAL SUSP PO SCH ×4 (06:27→20:56)
--- NOTE | 2019-11-28 06:27 | NUR ---
PT STILL REFUSES TO ALLOW A NEW IV TO BE STARTED.
--- NOTE | 2019-11-28 07:00 | NUR ---
Morning note Patient resting in bed with even and unlabored respirations on room air, no distress noted. Instructed patient on POC, fall precautions and to call for assistance as needed. Patient verbalized understanding; reinforcement needed d/t confusion. Fall precautions in place with call light within reach.
--- NOTE | 2019-11-28 07:42 | NUR ---
RE: Behavior Patient stated "My shirt is wet. I found it in the toilet so I had to wash it and now I have it hanging up to dry but I want to wear it because it matches with these pants." Instructed patient that the shirt has to dry prior to wearing it. Patient verbalized understanding. Patient returned to bed and started to remove telemonitor. Instructed patient on MD order for heart monitoring. Patient stated "I don't want it. I'm going to put it in my bag." This RN removed telemonitor and placed to the side, away from patient's reach. Contacted Yanna via telephone to update on patients status. Password obtained. Update provided. Phone call transferred to patients phone at bedside.
[2019-11-28 09:00] VITALS: BP 112/67
--- NOTE | 2019-11-28 09:41 | NUR ---
RE: IV Patient continues to refuse IV access to be started. Patient stated "I don't need that." Education provided to patient RE: IV access. Patient verbalized understanding although patient unable to comprehend d/t confusion.
[2019-11-28] MEDS: EPA ETHYL ESTER 1 GM PO SCH ×2 (10:00→20:56)
[2019-11-28] MEDS: PANTOPRAZOLE 40 MG TAB PO SCH ×2 (10:19→20:56)
[2019-11-28] MEDS: ACETAMINOPHEN 325 MG TAB PO PRN (10:19)
--- NOTE | 2019-11-28 10:25 | NUR ---
was at bedside - Dr. Ames This RN was at bedside. Notified MD of patient's mental status; behavior; family's concern RE: living situation; no IV access; and patient refusing telemonitor. MD verbalized understanding to all.
--- NOTE | 2019-11-28 11:30 | NUR ---
Nutrition Followup Note Wt 66.3kg, pt wt was 49 kg at time of original assessment Unable to talk to pt d/t to pt with behavior issues per RN notes and with a sitter. Pt with a soft diet and a good appetite aeb pt with 75% po intake 11/26 per RN note. Est Energy needs: 996-1145 kcals (20-23 kcal/kgBW) Est Protein needs: 50-55 gms/day (1.0-1.1 gm/kgBW) Will continue to monitor and reassess prn. Labs: BUN 21H, Ca 8.4L, Alb 3.0L BM: pt with 4 BMs 11/27 per RN note Skin: BS 19 low risk, full details in career orientation teacher note PES: Altered nutrition related lab values r/t current medical condition aeb elev RFT, low LFTs, mod hypoalbuminemia Comments Will continue to monitor PO status, skin status, pertinent labs and weight trends. Will f/u in 3-5 days. 1) Continue to carefully monitor pt PO intake to meet at least 75% of meals 2) Gradually advance pt to oral 2gm Sodium diet when medically feasible and as tolerated 3) Continue current plan of care Expected Outcomes/Goals: Pt appetite to remain at least 75% PO intake
[2019-11-28] MEDS: SODIUM FERR GLUC 62.5MG/5ML 125 MG in SODIUM CHL 0.9% 100 ML IV SCH (12:00)
--- NOTE | 2019-11-28 12:00 | NUR ---
RE: Home medications/IV iron Discussed with Dr. Ames RE: home medications. Order received for Clonazepam. Order received and read back to verify. Notified Dr. Ames that patient continues to have no IV access and scheduled IV Iron cannot be administered. verbalized understanding. Order received and read back to verify.
[2019-11-28] MEDS ORDERED: clonazePAM 0.5 MG TAB PO ONE (12:15)
--- NOTE | 2019-11-28 12:50 | NUR ---
Spoke with Leatha - patient's daughter Updated Leatha on patient's status & POC. Leatha verbalized understanding. Leatha stated "yes, my mom has been getting more forgetful this past week but I talk to her on the phone and she sounds like she is okay." Leatha would like to discuss placement plan with social work. Voicemail left with BETH Valera. Leatha's phone number is [phone].
[2019-11-28 13:00] VITALS: BP 100/68
[2019-11-28 17:02] VITALS: BP 112/66
[2019-11-28] MEDS: FERROUS SULFATE 325 MG TAB PO SCH (17:46)
--- NOTE | 2019-11-28 18:00 | NUR ---
RE: IV access/Telemonitor This RN attempted to apply telemonitor per MD order. Patient refused. Patient stated "I don't want that. I don't like all those things on me." Telemonitor at bedside with nursing consultant at bedside. MD aware. Patient refused IV access. Patient stated "I don't need it and I don't want it." MD aware.
--- NOTE | 2019-11-28 18:47 | NUR ---
Closing note Patient resting in bed with even and unlabored respirations on room air, no distress noted. Fall precautions in place with call light within reach.
--- NOTE | 2019-11-28 18:59 | NUR ---
Care endorsed to ANN MARIE Cardozo.
--- NOTE | 2019-11-28 19:10 | NUR ---
Opening Shift Note Assumed care of patient, awake and alertX2. No S/S of distress/SOB or pain. Patient has no IV access nor telebox, doctor aware. Sitter at bedside. Instructed on POC and to call for assist PRN, will continue to monitor for changes Q1hr and PRN.
[2019-11-28 20:00] VITALS: BP 113/71
[2019-11-28] MEDS: clonazePAM 0.5 MG TAB PO SCH (20:56)
[2019-11-28 22:06] VITALS: BP 113/71
[2019-11-29 05:00] VITALS: BP 113/75
[2019-11-29 06:08] LABS: Hemoglobin 7.8 g/dL (12.2-16.2)
[2019-11-29 06:10] LABS: Hematocrit 23.5 % (36.0-46.0)
[2019-11-29] MEDS: SUCRALFATE 1 GM/10 ML ORAL SUSP PO SCH ×4 (07:00→21:46)
[2019-11-29 09:00] VITALS: BP 108/65
[2019-11-29] MEDS ORDERED: clonazePAM 0.5 MG TAB PO SCH (10:00)
[2019-11-29] MEDS: EPA ETHYL ESTER 1 GM PO SCH ×2 (10:00→21:52)
[2019-11-29] MEDS: FERROUS SULFATE 325 MG TAB PO SCH ×3 (10:17→18:09)
[2019-11-29] MEDS: PANTOPRAZOLE 40 MG TAB PO SCH ×2 (10:18→21:46)
--- NOTE | 2019-11-29 11:00 | NUR ---
Assessment Patient is a 74-year-old female who is alert and oriented. Patient primary language is Puerto [place]ican. Prior to admission patient lived home alone and functioned with assistance. Per patient her Caregiver Elaine helps her with her ADLs. Per patient she has a walker with seat for home use. Advised patient there is a social service consult for placement. Per patient she will return home to her prior living arrangements post discharge and [facility] transportation will need to be arranged. Patient feels safe returning home. Informed patient I will inform bedside nurse regarding orders for home health. Informed patient she has the right to participate in all discharge planning. Patient verbalized understanding and agreed to discharge plan. Informed RN Yesenia patient is refusing placement and would like to return home. Addendum: 11/29/19 at 1537 by JEVON MARTÍNEZ Amended: Links added.
--- NOTE | 2019-11-29 11:48 | NUR ---
Dr. De La Cruz at bed side, discussing POC with patient/
[2019-11-29 13:00] VITALS: BP 130/67
--- NOTE | 2019-11-29 15:40 | NUR ---
D/C Planning Per consult for home health safety evaluation. Patient has no home health preference. Faxed clinical information to [facility] Per Ms. Harrell patient has been accepted and service to start within 24-48hrs upon d/c day.
[2019-11-29 17:00] VITALS: BP 124/69
--- NOTE | 2019-11-29 19:40 | NUR ---
Opening Shift Note Assumed care of patient, oriented x 2. No S/S of distress/SOB or pain. Sitter at bedside. Discussed on POC and to call for assist PRN, patient verbalized understanding. Safety precaution in place, sitter at bedside, will continue to monitor for changes Q1hr and PRN.
[2019-11-29] MEDS: clonazePAM 0.5 MG TAB PO SCH (20:00)
--- NOTE | 2019-11-29 21:20 | NUR ---
Spoke with Yanna ([id number]) and updated on patient's status and POC.
[2019-11-29 22:00] VITALS: BP 102/54
[2019-11-29] MEDS: ACETAMINOPHEN 325 MG TAB PO PRN (22:51)
[2019-11-30] VITALS (7 sets, daily range): BP systolic 106–140; BP diastolic 63–71
[2019-11-30] MEDS: SUCRALFATE 1 GM/10 ML ORAL SUSP PO SCH ×4 (05:59→21:21)
[2019-11-30 06:47] LABS: Basophils # (auto) 0 10 ^3/uL (0-0.2); Eosinophils # (auto) 0.2 10 ^3/uL (0-0.8); Eosinophils % (auto) 2.7 % (0.0-7.0); Hematocrit 22.7 % (36.0-46.0); Hemoglobin 7.6 g/dL (12.2-16.2); Mean Corpuscular Hemoglobin 24.5 pg (28.0-32.0)
[2019-11-30 06:49] LABS: Basophils % (auto) 0.3 % (0.0-2.0); Lymphocytes # (auto) 1.5 10 ^3/uL (0.4-5.4); Mean Corpuscular Hgb Conc. 33.5 g/dL (32.0-36.0); Mean Corpuscular Volume 73.2 fL (80.0-100.0); Monocytes # (auto) 1.3 10 ^3/uL (0-1.3); Neutrophils # (auto) 5.5 10 ^3/uL (1.6-8.6); Platelet Count (auto) 446 10^3/uL (140-450); White Blood Cell 8.6 10^3/uL (4.4-10.8)
[2019-11-30 06:50] LABS: Red Cell Distribution Width 27.6 % (11.8-14.3)
[2019-11-30] MEDS: FERROUS SULFATE 325 MG TAB PO SCH ×3 (08:00→18:02)
[2019-11-30] MEDS: PANTOPRAZOLE 40 MG TAB PO SCH ×2 (08:59→21:21)
[2019-11-30] MEDS: EPA ETHYL ESTER 1 GM PO SCH (08:59)
--- NOTE | 2019-11-30 10:10 | NUR ---
Dr. Celestine Law at bed side. Patient cleared from GI perspective per , F/U outpatient.
--- NOTE | 2019-11-30 11:50 | NUR ---
ASSUMED CARE OF PATIENT FROM MARTINA JESUS
[2019-11-30] MEDS ORDERED: EPOETIN ALFA 10,000 UNIT/1 ML VIAL SC ONE (15:15)
--- NOTE | 2019-11-30 16:56 | NUR ---
SPOKE WITH DAUGHTER VIRAL ON THE PHONE REGARDING BLOOD CONSENTS
--- NOTE | 2019-11-30 17:00 | NUR ---
IV insertion IV access obtained, via clean sterile technique by inserting 20 gauge catheter at left wrist after 1 attempt. IV secured properly. No trauma to site. Patient tolerated well.
--- NOTE | 2019-11-30 19:16 | NUR ---
ENDORSED CARE TO NOC SHIFT RN
[2019-11-30] MEDS: ACETAMINOPHEN 325 MG TAB PO PRN (19:54)
[2019-11-30] MEDS: clonazePAM 0.5 MG TAB PO SCH (20:00)
--- NOTE | 2019-11-30 21:19 | NUR ---
Started 1st unit of PRBC after verified by 2nd RN Sary, will monitor for BT reaction
[2019-12-01] VITALS (10 sets, daily range): BP systolic 127–138; BP diastolic 68–85
--- NOTE | 2019-12-01 | NUR ---
1st unit of blood done, no BT reaction noted
--- NOTE | 2019-12-01 01:30 | NUR ---
2nd unit of PRBC hooked after verified by 2nd RN Ana Paula, will monitor for BT reaction
--- NOTE | 2019-12-01 04:09 | NUR ---
2nd unit of blood done, no BT reaction noted
[2019-12-01] MEDS: SUCRALFATE 1 GM/10 ML ORAL SUSP PO SCH ×4 (06:11→21:35)
[2019-12-01 06:57] LABS: Basophils # (auto) 0 10 ^3/uL (0-0.2); Eosinophils # (auto) 0.2 10 ^3/uL (0-0.8)
[2019-12-01 07:00] LABS: Basophils % (auto) 0.4 % (0.0-2.0); Eosinophils % (auto) 2.1 % (0.0-7.0); Hematocrit 33.1 % (36.0-46.0); Hemoglobin 10.9 g/dL (12.2-16.2); Lymphocytes # (auto) 1.3 10 ^3/uL (0.4-5.4); Lymphocytes % (auto) 15.6 % (10.0-50.0); Mean Corpuscular Hemoglobin 25.2 pg (28.0-32.0); Mean Corpuscular Hgb Conc. 32.9 g/dL (32.0-36.0); Mean Corpuscular Volume 76.6 fL (80.0-100.0); Neutrophils % (auto) 69.9 % (37.0-80.0); Platelet Count (auto) 462 10^3/uL (140-450); Red Blood Cells 4.32 10^6/uL (4.0-5.20); White Blood Cell 8.5 10^3/uL (4.4-10.8)
[2019-12-01 07:28] LABS: Red Cell Distribution Width 26.9 % (11.8-14.3)
--- NOTE | 2019-12-01 07:55 | NUR ---
Opening shift note Assumed care of patient, awake and alert. No S/S of distress/SOB .Patient c/o back pain, rates it 5/10. Will medicate per MD orders. Instructed on POC and to call for assist PRN.Bed at lowest locked position and call light within reach. Will continue to monitor for changes Q1hr and PRN.Sitter at bedside for safety.
--- NOTE | 2019-12-01 09:01 | NUR ---
Patient keeps refusing Tele-monitor. Education provided.
--- NOTE | 2019-12-01 09:05 | NUR ---
Updated Yanna MCFARLAND, on plan of care after password was provided.
[2019-12-01] MEDS: FERROUS SULFATE 325 MG TAB PO SCH ×3 (09:21→18:00)
[2019-12-01] MEDS: ACETAMINOPHEN 325 MG TAB PO PRN (09:22)
[2019-12-01] MEDS: PANTOPRAZOLE 40 MG TAB PO SCH ×2 (09:22→21:35)
--- NOTE | 2019-12-01 14:38 | NUR ---
Nutrition Followup Note Wt 46.4 kg pt was sleeping with no family by bedside. per records pt with pyloric ulcer and GI bleed. pt is currently on soft diet with adequate Po of 75% x 6 per RN doc. pt with no distress noted Est Energy needs: 996-1145 kcals (20-23 kcal/kgBW), Est Protein needs: 50-55 gms/day (1.0-1.1 gm/kgBW). Will continue to monitor and reassess prn. Labs: BUN 21 H CA 8.4 L BM: pt had 1 BM today per RN note Skin: BS 16 mod risk, full details in resident care manager rn note PES: Altered nutrition related lab values r/t current medical condition aeb elev RFT, low LFTs, mod hypoalbuminemia Comments: Will continue to monitor PO status, skin status, pertinent labs and weight trends. Will f/u in 3-5 days. Rec: 1) Continue current plan of care
--- NOTE | 2019-12-01 17:45 | NUR ---
DR. Smith at bedside. Per MD patient will be discharged tomorrow. Patient aware and informed
--- NOTE | 2019-12-01 18:44 | NUR ---
Closing kimber Patient resting in bed with even and unlabored respirations on room air.No s/s of distress noted/stated. No c/o pain. Bed at lowest locked position and dulce light within reach. Sitter at bedside for safety. Will endorse care to NOC RN.
--- NOTE | 2019-12-01 19:30 | NUR ---
RECEIVED PATIENT FROM DAY SHIFT RN. PATIENT RESTING IN BED. NO S/S OF DISTRESS NOTED. DENIED PAIN FOR NOW. REORIENTED PATIENT TIME AND SITUATION. REORIENTED NEEDED. POC INSTRUCTED AND ENCOURAGED PATIENT TO CALL FOR APPLICATION RELEASE MANAGER IF NEEDED. BED IN LOWEST LOCKED POSITION WITH SIDE RAILS UP X 2. CALL DONALDSON WITHIN REACH. ALARM ON. SITTER AT BEDSIDE FOR SAFETY. CONTINUE TO MONITOR FOR CHANGES Q1H AND PRN.
[2019-12-01] MEDS: clonazePAM 0.5 MG TAB PO SCH (21:35)
--- NOTE | 2019-12-01 21:38 | NUR ---
ORAL MEDICATION GIVEN ORDERED, PATIENT SWALLOWED WELL. NO S/S OF ASPIRATION NOTED. CONTINUE TO MONITOR.
--- NOTE | 2019-12-02 02:09 | NUR ---
PATIENT SLEEPING. NO S/S OF DISTRESS AND PAIN NOTED. CONTINUE TO MONITOR.
[2019-12-02 05:00] VITALS: BP 133/78
[2019-12-02] MEDS: SUCRALFATE 1 GM/10 ML ORAL SUSP PO SCH ×2 (06:34→11:22)
--- NOTE | 2019-12-02 08:18 | NUR ---
OPENING SHIFT NOTE: PATIENT AMBULATING FROM BATHROOM A/OX2. RESPIRATIONS EVEN AND UNLABORED, IV SITE ASSESSED, PATENT AND ASYMPTOMATIC. UPDATED ON PLAN OF CARE AND ATTEMPTED TO RE-ORIENT, WIDOWS OPENED AND ROOM FREE OF CLUTTER. PATIENT REFUSES TELE BOX. SITTER AT BEDSIDE, WILL CONTINUE TO MONITOR.
[2019-12-02 09:00] VITALS: BP 130/69
[2019-12-02] MEDS: PANTOPRAZOLE 40 MG TAB PO SCH (09:11)
[2019-12-02] MEDS: FERROUS SULFATE 325 MG TAB PO SCH ×2 (09:12→12:00)
[2019-12-02 13:00] VITALS: BP 115/73
--- NOTE | 2019-12-02 15:31 | NUR ---
UNABLE TO SIGN: PATIENT UPDATED ON DISCHARGE PLAN, NOTIFIED FAMILY OF DISCHARGE, DAUGHTER GRAEME TO MOLECULAR PHYSICIST AT 1600. PATIENT UNABLE TO SIGN DC PAPERWORK AT THIS TIME, PATIENT ORIENTED A/OX1 TO SELF. PATIENT CONCERNED ABOUT NUMBERS OF COPIES OF DC RECORDS, PAYMENTS AT HOME, AND WAS UNABLE TO COMPREHEND EDUCATION AT THIS TIME, WILL INSTRUCT CAREGIVER AND DAUGHTER UPON MOLECULAR PHYSICIST.
--- NOTE | 2019-12-02 17:27 | NUR ---
DISCHARGE: PATIENT GIVEN ALL EDUCATION MATERIALS, IV REMOVED MANUAL PRESSURE APPLIED. TELE RETURNED TO CARDIO UNIT. PATIENT TAKEN DOWN TO PRIVATE AUTO WITH ALL BELONGINGS. EDUCATION GIVEN TO DAUGHTER GRAEME WELL AND INFORMED ABOUT HHC WITH [facility] START UP WITHIN 24-48HRS GRAEME ABLE TO LITIGATION ATTORNEY MEDS FROM [facility] PATIENT LEFT WITHOUT INCIDENCE.
== END 2019-12-02 17:30 | disposition home or self-care (01) | DRG 378 ==
LOC: ER 11:59 → EDBD 11:59 → TELE 12:00 → TELE-WESTW 19:02
PROVIDERS: ADMIT Student in an Organized Health Care Education/Training Program; ATTEND Internal Medicine Cardiovascular Disease
PROC: 30233N1 Transfusion of Nonautologous Red Blood Cells into Peripheral Vein, Percutaneous Approach (ICD-10-PCS; 2019-11-22)
PROC: 0DB88ZX Excision of Small Intestine, Via Natural or Artificial Opening Endoscopic, Diagnostic (ICD-10-PCS; 2019-11-24)
PROC: 0DB68ZX Excision of Stomach, Via Natural or Artificial Opening Endoscopic, Diagnostic (ICD-10-PCS; principal; 2019-11-24 14:26)
DX: K26.4 Chronic or unspecified duodenal ulcer with hemorrhage (principal); E44.0 Moderate protein-calorie malnutrition; Z68.1 Body mass index [BMI] 19.9 or less, adult; D62 Acute posthemorrhagic anemia; K29.71 Gastritis, unspecified, with bleeding; K29.81 Duodenitis with bleeding; K44.9 Diaphragmatic hernia without obstruction or gangrene; D63.8 Anemia in other chronic diseases classified elsewhere; R62.7 Adult failure to thrive; I10 Essential (primary) hypertension; M19.90 Unspecified osteoarthritis, unspecified site; D56.1 Beta thalassemia; K57.90 Diverticulosis of intestine, part unspecified, without perforation or abscess without bleeding; K76.89 Other specified diseases of liver; F03.90 Unspecified dementia, unspecified severity, without behavioral disturbance, psychotic disturbance, mood disturbance, and anxiety; F41.9 Anxiety disorder, unspecified; M54.9 Dorsalgia, unspecified; Z86.011 Personal history of benign neoplasm of the brain; Z90.710 Acquired absence of both cervix and uterus; K25.9 Gastric ulcer, unspecified as acute or chronic, without hemorrhage or perforation
CPT/HCPCS: 36415; 70450; 71045; 74176; 80048; 80053; 80320; 81001; 82607; 82728; 82746; 83540; 83550; 84439; 84443; 84484; 85014; 85018; 85025; 85610; 85730; 86850; 86900; 86901; 86920; 87086; 99291; C9113; G0378; J0696; J0885; J2250

== ENCOUNTER → 2019-12-13 | Outpatient (CLI) | payer MEDICARE, MEDICAID ==
[~2019-12-13] MED LIST changes: +ACET1CAP14 PO; +IBUP800T24 PO; +ICOS1CAP PO; +PANT40TA2 PO; +POTA10TA32 PO; +SACU1TAB PO
[2019-12-13 15:56] LABS: Eosinophils # (auto) 0.1 10 ^3/uL (0-0.8); Monocytes # (auto) 0.6 10 ^3/uL (0-1.3); Neutrophils # (auto) 4.4 10 ^3/uL (1.6-8.6)
[2019-12-13 15:58] LABS: Basophils # (auto) 0 10 ^3/uL (0-0.2); Basophils % (auto) 0.4 % (0.0-2.0); Eosinophils % (auto) 1.5 % (0.0-7.0); Hematocrit 19.1 % (36.0-46.0); Lymphocytes % (auto) 27.4 % (10.0-50.0); Mean Corpuscular Hemoglobin 24.6 pg (28.0-32.0); Mean Corpuscular Hgb Conc. 31.9 g/dL (32.0-36.0); Monocytes % (auto) 8.5 % (0.0-12.0); Neutrophils % (auto) 62.2 % (37.0-80.0); Nucleated Red Blood Cells % 0.1 %; Platelet Count (auto) 493 10^3/uL (140-450); Red Blood Cells 2.49 10^6/uL (4.0-5.20); White Blood Cell 7.2 10^3/uL (4.4-10.8)
[2019-12-13 16:11] LABS: Calcium 8.9 mg/dL (8.5-10.1); Hemoglobin 6.1 g/dL (12.2-16.2); Potassium 4.5 mmol/L (3.5-5.1)
[2019-12-13 16:13] LABS: BUN/Creatinine Ratio 32.2
== END | disposition home or self-care (01) ==
LOC: LAB 11:56
PROVIDERS: ATTEND Internal Medicine Cardiovascular Disease
DX: D64.9 Anemia, unspecified (principal); I10 Essential (primary) hypertension
CPT/HCPCS: 36415; 80048; 85025

== ENCOUNTER 2019-12-15 06:39 | Day surgery (SDC) | payer MEDICARE, MEDICAID ==
[2019-12-15] VITALS (11 sets, daily range): BP systolic 75–105; BP diastolic 41–58
[~2019-12-15] VITALS: Ht 152.4 cm; Wt 44.2 kg
[~2019-12-15 06:39] MED LIST changes: -ACET1CAP14 PO; -PANT40TA2 PO
--- NOTE | 2019-12-15 06:50 | NUR ---
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 No s/s of discomfort/distress. Consents reviewed/signed. Pt prepped for blood transfusion. Connected to equipment monitoring. IV started on Right AC 20g using aseptic technique, patent, flushed, SL; site benign. Will prepare to start transfusion and cont to monitor.
--- NOTE | 2019-12-15 07:40 | NUR ---
Redraw of type and screen due to no type and screen wristband on patient. Lab notified. Will order new type and screen stat. Pt understanding and is waiting patiently.
--- NOTE | 2019-12-15 08:30 | NUR ---
Assumed care of pt. 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 Pt. awake, alert and oriented to person, place and time but is asking questions about why she is here; reminded by this RN regarding she was sent by MD for a blood transfusion; pt. responded with "Oh yeah, okay." and is compliant. Respirations even and unlabored with NAD noted. 20G IV NS lock to RIGHT AC is intact; site benign. Consents reviewed. Pt. 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 when ready for discharge.
--- NOTE | 2019-12-15 09:25 | NUR ---
Blood product checked with Ana Paula Tan RN and transfusion started per protocol; see transfusion record. Infusion rate started at 75ml/hr via pump.
--- NOTE | 2019-12-15 09:55 | NUR ---
Transfusion in progress; rate increase to 100 ml/hr via pump. Pt. is calm and denies discomfort. Eating regular breakfast now.
--- NOTE | 2019-12-15 11:01 | NUR ---
Blood transfusion in progress; rate increased to 150 ml/hr; site benign. Continues to deny discomfort. Pt. is resting with NAD noted.
--- NOTE | 2019-12-15 12:35 | NUR ---
First unit Blood transfusion complete. Pt. remains stable with no transfusion reaction. IV to RIGHT AC intact; site benign. Pt. denies discomfort other than is anxious to go home. Reinforced instruction re: plan of care; pt. verbalized understanding and is compliant.
--- NOTE | 2019-12-15 12:48 | NUR ---
Second unit blood transfusion in progress at 75 ml/hr via pump. Pt. resting with NAD noted.
--- NOTE | 2019-12-15 13:23 | NUR ---
Blood transfusion rate increased to 100 ml/hr; IV site benign. Pt. states feels "fine" and denies discomfort. NAD noted.
--- NOTE | 2019-12-15 13:51 | NUR ---
Assisted by Ana Paula Tan RN to use BSC; pt. tolerated activity well.
--- NOTE | 2019-12-15 14:02 | NUR ---
Blood transfusion in progress, IV rate increased to 150 ml/hr; site benign.
--- NOTE | 2019-12-15 14:50 | NUR ---
Home meds verified with pt.'s [id number], Yanna. Discharge instructions given to Yanna and pt.'s caregiver, Elaine via telephone; both verbalized understanding and state will comply and follow-up with Dr. Smith in office.
[2019-12-15] MEDS ORDERED: PANT40TA2 PO (15:06)
[2019-12-15] MEDS ORDERED: ACET1CAP14 PO (15:06)
[2019-12-15] MEDS ORDERED: SACU1TAB PO (15:07)
--- NOTE | 2019-12-15 15:19 | NUR ---
Blood transfusion complete with no reaction to blood products. Pt. remains stable with no c/o discomfort. Discharge instructions given and pt. reassured that I have already communicated with her [id number], Yanna and caregiver, Elaine; verbalized understanding. Breathes deeply and denies dizziness, NAD noted.
--- NOTE | 2019-12-15 15:32 | NUR ---
IV removed with cath intact, gauze pressure dressing and Coban applied. Pt. dressed self with no assist and moves well with no unsteadiness. States she feels "very good."
--- NOTE | 2019-12-15 15:45 | NUR ---
Discharged in stable condition via w/c to POV in c/o caregiver. Will f/u with MD in office.
== END 2019-12-15 15:45 | disposition home or self-care (01) ==
LOC: CATH 06:39
PROVIDERS: ATTEND Internal Medicine Cardiovascular Disease
DX: D64.9 Anemia, unspecified (principal); Z20.828 Contact with and (suspected) exposure to other viral communicable diseases; Z98.890 Other specified postprocedural states; Z79.899 Other long term (current) drug therapy
CPT/HCPCS: 36415; 36430; 86850; 86900; 86901; 86920; 87426; J7030; P9016

== ENCOUNTER → 2019-12-17 | Outpatient (CLI) | payer MEDICARE, MEDICAID ==
[~2019-12-17] MED LIST changes: +ACET1CAP14 PO; -ASPI81CH43 PO; -CLON1TAB10 PO; -FLUO20CA90 PO; -HYDR-4833 PO; -IBUP800T24 PO; -ICOS1CAP PO; -LISI-648 PO; +PANT40TA2 PO; -SACU1TAB PO; -SIMV10TA84 PO
[2019-12-17 12:00] LABS: Basophils # (auto) 0 10 ^3/uL (0-0.2); Lymphocytes # (auto) 1.1 10 ^3/uL (0.4-5.4); Monocytes # (auto) 0.5 10 ^3/uL (0-1.3); White Blood Cell 4.7 10^3/uL (4.4-10.8)
[2019-12-17 12:03] LABS: Basophils % (auto) 0.5 % (0.0-2.0); Eosinophils # (auto) 0.2 10 ^3/uL (0-0.8); Eosinophils % (auto) 3.5 % (0.0-7.0); Hemoglobin 9.7 g/dL (12.2-16.2); Lymphocytes % (auto) 22.8 % (10.0-50.0); Mean Corpuscular Hemoglobin 26.3 pg (28.0-32.0); Mean Corpuscular Hgb Conc. 33.4 g/dL (32.0-36.0); Mean Corpuscular Volume 78.7 fL (80.0-100.0); Monocytes % (auto) 10.6 % (0.0-12.0); Neutrophils % (auto) 62.6 % (37.0-80.0); Nucleated Red Blood Cells % 0.1 %; Platelet Count (auto) 509 10^3/uL (140-450); Red Blood Cells 3.69 10^6/uL (4.0-5.20)
[2019-12-17 12:12] LABS: Red Cell Distribution Width 22.2 % (11.8-14.3)
[2019-12-17 12:15] LABS: Potassium 4.2 mmol/L (3.5-5.1)
[2019-12-17 12:20] LABS: Albumin 3.3 g/dL (3.4-5.0); BUN/Creatinine Ratio 23.2; Bilirubin, Total 0.3 mg/dL (0.2-1.0); Calcium 8.4 mg/dL (8.5-10.1)
== END | disposition home or self-care (01) ==
LOC: LAB 10:55
PROVIDERS: ATTEND Internal Medicine Cardiovascular Disease
DX: I10 Essential (primary) hypertension (principal); D64.9 Anemia, unspecified
CPT/HCPCS: 36415; 80053; 85025

== ENCOUNTER → 2019-12-21 | Outpatient (CLI) | payer MEDICARE, MEDICAID | END | disposition home or self-care (01) | LOC: Rad HDHVI 09:08 | PROVIDERS: ATTEND Internal Medicine Cardiovascular Disease | DX: I08.8 Other rheumatic multiple valve diseases (principal); I42.0 Dilated cardiomyopathy; I50.23 Acute on chronic systolic (congestive) heart failure; I71.2 Thoracic aortic aneurysm, without rupture | CPT/HCPCS: 93306 ==

== ENCOUNTER 2020-01-24 10:47 | Inpatient (IN) | payer MEDICARE, MEDICAID ==
[~2020-01-24] VITALS: Ht 154.9 cm; Wt 49.9 kg
[2020-01-24 11:03] VITALS: BP 123/53
[2020-01-24 12:19] LABS: Basophils % (auto) 0.8 % (0.0-2.0); Eosinophils # (auto) 0.1 10 ^3/uL (0-0.8); Lymphocytes # (auto) 1.2 10 ^3/uL (0.4-5.4); Monocytes # (auto) 0.5 10 ^3/uL (0-1.3)
[2020-01-24 12:20] LABS: Basophils # (auto) 0.1 10 ^3/uL (0-0.2); Eosinophils % (auto) 1.6 % (0.0-7.0); Hematocrit 24.3 % (36.0-46.0); Hemoglobin 7.7 g/dL (12.2-16.2); Lymphocytes % (auto) 20.7 % (10.0-50.0); Mean Corpuscular Hemoglobin 21.7 pg (28.0-32.0); Mean Corpuscular Hgb Conc. 31.7 g/dL (32.0-36.0); Mean Corpuscular Volume 68.4 fL (80.0-100.0); Monocytes % (auto) 9.1 % (0.0-12.0); Neutrophils # (auto) 4.1 10 ^3/uL (1.6-8.6); Neutrophils % (auto) 67.8 % (37.0-80.0); Platelet Count (auto) 482 10^3/uL (140-450); Red Blood Cells 3.55 10^6/uL (4.0-5.20)
[2020-01-24 12:30] LABS: Red Cell Distribution Width 21.7 % (11.8-14.3)
[2020-01-24 12:55] LABS: Alanine Aminotransferase 9 U/L (13-56); Albumin 3.4 g/dL (3.4-5.0); Alkaline Phosphatase 30 U/L (45-117); Anion Gap 8 (5-15); Aspartate Aminotransferase 12 U/L (15-37); BUN/Creatinine Ratio 26.4; Bilirubin, Total 0.3 mg/dL (0.2-1.0); Blood Urea Nitrogen 34 mg/dL (7-18); Calcium 8.7 mg/dL (8.5-10.1); Carbon Dioxide 28 mmol/L (21-32); Chloride 103 mmol/L (98-107); GFR African American 52 mL/min; GFR Non-African American 43 mL/min; Glucose 86 mg/dL (74-106); Magnesium 2.6 mg/dL (1.6-2.6); Potassium 3.8 mmol/L (3.5-5.1); Sodium 139 mmol/L (136-145); Total Protein 6.2 g/dL (6.4-8.2)
[2020-01-24] MEDS ORDERED: SODIUM CHLORIDE 0.9% 1,000 ML IV ONE (14:00)
[2020-01-24] MEDS ORDERED: NITROGLYCERIN 0.4 MG SL TAB SL PRN (14:00)
[2020-01-24] MEDS ORDERED: MORPHINE SULF INJ 2 MG/ML SYRINGE 1ML IV PRN (14:00)
[2020-01-24] MEDS ORDERED: CLON1TAB10 PO (17:13)
[2020-01-24] MEDS ORDERED: TORS20TA20 PO (17:13)
[2020-01-24] MEDS ORDERED: CHOL20007 PO (17:14)
[2020-01-24] MEDS ORDERED: PANTOPRAZOLE 40 MG TAB PO SCH (22:00)
[2020-01-25] MEDS ORDERED: PATIENTS OWN MEDICATION (Folic Acid 1 MG) PO SCH (07:00)
[2020-01-25] MEDS ORDERED: POTASSIUM CHL 10 Meq TABLET PO SCH (07:00)
[2020-01-25] MEDS ORDERED: PATIENTS OWN MEDICATION (Potassium Chloride (Potassium Chloride ER) 10 MEQ) PO SCH (07:00)
[2020-01-25] MEDS ORDERED: FOLIC ACID 1 MG TAB PO SCH (07:00)
== END 2020-01-24 23:54 | disposition left against medical advice (07) | DRG 812 ==
LOC: EDBD 10:47 → ER 10:47 → CENTRAL 13:57
PROVIDERS: ADMIT Emergency Medicine; ATTEND Emergency Medicine
DX: D64.9 Anemia, unspecified (principal); S82.001A Unspecified fracture of right patella, initial encounter for closed fracture; F03.90 Unspecified dementia, unspecified severity, without behavioral disturbance, psychotic disturbance, mood disturbance, and anxiety; S46.911A Strain of unspecified muscle, fascia and tendon at shoulder and upper arm level, right arm, initial encounter; E11.9 Type 2 diabetes mellitus without complications; I10 Essential (primary) hypertension; Z53.29 Procedure and treatment not carried out because of patient's decision for other reasons; W18.39XA Other fall on same level, initial encounter; Y93.89 Activity, other specified; Y92.89 Other specified places as the place of occurrence of the external cause; Y99.8 Other external cause status
CPT/HCPCS: 36415; 70450; 73030; 73560; 80053; 83735; 84484; 85025; G0378

== ENCOUNTER → 2020-01-25 | Outpatient (CLI) | payer MEDICARE, MEDICAID ==
[~2020-01-25] MED LIST changes: +CHOL20007 PO; +CLON1TAB10 PO; +TORS20TA20 PO
[2020-01-25 12:04] LABS: Eosinophils # (auto) 0.1 10 ^3/uL (0-0.8); Hemoglobin 7.7 g/dL (12.2-16.2); Monocytes # (auto) 0.7 10 ^3/uL (0-1.3); Nucleated Red Blood Cells % 0.1 %
[2020-01-25 12:07] LABS: Basophils # (auto) 0.1 10 ^3/uL (0-0.2); Basophils % (auto) 0.6 % (0.0-2.0); Eosinophils % (auto) 1.2 % (0.0-7.0); Hematocrit 23.7 % (36.0-46.0); Lymphocytes # (auto) 1.6 10 ^3/uL (0.4-5.4); Lymphocytes % (auto) 18.5 % (10.0-50.0); Mean Corpuscular Hemoglobin 22.2 pg (28.0-32.0); Mean Corpuscular Hgb Conc. 32.6 g/dL (32.0-36.0); Monocytes % (auto) 8.6 % (0.0-12.0); Neutrophils # (auto) 6.1 10 ^3/uL (1.6-8.6); Neutrophils % (auto) 71.1 % (37.0-80.0); Platelet Count (auto) 460 10^3/uL (140-450); Red Blood Cells 3.48 10^6/uL (4.0-5.20); White Blood Cell 8.6 10^3/uL (4.4-10.8)
[2020-01-25 12:11] LABS: Red Cell Distribution Width 21.4 % (11.8-14.3)
== END | disposition home or self-care (01) ==
LOC: LAB 10:02
PROVIDERS: ATTEND Internal Medicine Cardiovascular Disease
DX: D64.9 Anemia, unspecified (principal)
CPT/HCPCS: 36415; 85025

== ENCOUNTER → 2020-06-06 | Outpatient (CLI) | payer MEDICARE, MEDICAID ==
[2020-06-06 11:46] LABS: Eosinophils # (auto) 0.2 10 ^3/uL (0-0.8); Lymphocytes # (auto) 1.4 10 ^3/uL (0.4-5.4); Monocytes # (auto) 0.6 10 ^3/uL (0-1.3)
[2020-06-06 11:51] LABS: Basophils # (auto) 0 10 ^3/uL (0-0.2); Basophils % (auto) 0.8 % (0.0-2.0); Eosinophils % (auto) 3.3 % (0.0-7.0); Hematocrit 28.5 % (36.0-46.0); Lymphocytes % (auto) 27.8 % (10.0-50.0); Mean Corpuscular Hemoglobin 19.7 pg (28.0-32.0); Mean Corpuscular Hgb Conc. 31.5 g/dL (32.0-36.0); Mean Corpuscular Volume 62.4 fL (80.0-100.0); Monocytes % (auto) 12.6 % (0.0-12.0); Neutrophils # (auto) 2.8 10 ^3/uL (1.6-8.6); Neutrophils % (auto) 55.5 % (37.0-80.0); Nucleated Red Blood Cells % 0.3 %; Platelet Count (auto) 442 10^3/uL (140-450); Red Blood Cells 4.57 10^6/uL (4.0-5.20); Red Cell Distribution Width 15.6 % (11.8-14.3)
[2020-06-06 11:59] LABS: Albumin 4.1 g/dL (3.4-5.0); Calcium 9.2 mg/dL (8.5-10.1); Potassium 3.7 mmol/L (3.5-5.1)
[2020-06-06 12:09] LABS: Free T4 (Free Thyroxine) 1.41 ng/dL (0.89-1.76)
[2020-06-06 12:13] LABS: Urine Blood Negative /uL (Negative); Urine Specific Gravity 1.017 (1.001-1.035)
[2020-06-06 13:52] LABS: BUN/Creatinine Ratio 25.2; Bilirubin, Total 0.4 mg/dL (0.2-1.0); Total Protein 7.1 g/dL (6.4-8.2)
== END | disposition home or self-care (01) ==
LOC: LAB 08:10
PROVIDERS: ATTEND Internal Medicine Cardiovascular Disease
DX: D51.3 Other dietary vitamin B12 deficiency anemia (principal); D64.9 Anemia, unspecified; E11.9 Type 2 diabetes mellitus without complications; E55.9 Vitamin D deficiency, unspecified; I10 Essential (primary) hypertension; R00.2 Palpitations; R53.1 Weakness; R30.0 Dysuria
CPT/HCPCS: 36415; 80053; 80061; 81003; 82306; 82607; 83036; 84439; 84443; 85025

== ENCOUNTER 2020-06-21 09:12 | Inpatient (IN) | payer MEDICARE, MEDICAID ==
[~2020-06-21] VITALS: Ht 160 cm; Wt 51.4 kg
[2020-06-21] MEDS ORDERED: SODIUM CHLORIDE 0.9% 1,000 ML IV ONE (09:45)
[2020-06-21 09:55] LABS: Basophils # (auto) 0.1 10 ^3/uL (0-0.2); Eosinophils # (auto) 0 10 ^3/uL (0-0.8)
[2020-06-21 09:59] LABS: Basophils % (auto) 0.5 % (0.0-2.0); Eosinophils % (auto) 0.1 % (0.0-7.0); Hematocrit 28.7 % (36.0-46.0); Hemoglobin 9.3 g/dL (12.2-16.2); Lymphocytes # (auto) 1.2 10 ^3/uL (0.4-5.4); Lymphocytes % (auto) 9.2 % (10.0-50.0); Mean Corpuscular Hemoglobin 19.5 pg (28.0-32.0); Mean Corpuscular Hgb Conc. 32.5 g/dL (32.0-36.0); Monocytes # (auto) 0.7 10 ^3/uL (0-1.3); Monocytes % (auto) 5.4 % (0.0-12.0); Neutrophils # (auto) 11.5 10 ^3/uL (1.6-8.6); Neutrophils % (auto) 84.8 % (37.0-80.0); Nucleated Red Blood Cells % 0.1 %; Platelet Count (auto) 416 10^3/uL (140-450); Red Blood Cells 4.77 10^6/uL (4.0-5.20); Red Cell Distribution Width 15.6 % (11.8-14.3); White Blood Cell 13.5 10^3/uL (4.4-10.8)
[2020-06-21 10:00] LABS: Albumin 3.7 g/dL (3.4-5.0); Calcium 8.8 mg/dL (8.5-10.1); Potassium 4.2 mmol/L (3.5-5.1)
[2020-06-21 10:06] LABS: BUN/Creatinine Ratio 22.2; Bilirubin, Total 0.4 mg/dL (0.2-1.0); Total Protein 6.6 g/dL (6.4-8.2)
[2020-06-21 11:22] LABS: Urine Bacteria NONE SEEN /hpf (None Seen); Urine Blood TRACE /uL (Negative); Urine Hyaline Cast FEW /lpf (0 - 2); Urine Specific Gravity 1.015 (1.001-1.035); Urine WBC 3 /hpf (0 - 5)
[2020-06-21] MEDS ORDERED: ALPRAZolam 0.5 MG TAB PO ONE (11:30)
[2020-06-21] MEDS ORDERED: cefTRIAXone 1GM/50ML D5W 50 ML IV ONE ×2 (11:35→11:45)
[2020-06-21 11:42] LABS: Alcohol, Urine < 3.0 mg/dL (0-10); Amphetamine Screen, Urine NEGATIVE (NEGATIVE); Barbiturate Scree,Urine NEGATIVE (NEGATIVE); Benzodiazephine Screen, Urine POSITIVE (NEGATIVE); Cannabinoid Screen, Urine NEGATIVE (NEGATIVE); Cocaine Screen, Urine NEGATIVE (NEGATIVE); Opiate Scree,Urine NEGATIVE (NEGATIVE); Phencyclidine Screen, Urine NEGATIVE (NEGATIVE)
[2020-06-21] MEDS ORDERED: MEGE40TA4 PO (13:55)
[2020-06-21] MEDS ORDERED: DIGO0.12 PO (13:55)
[2020-06-21] MEDS ORDERED: HAL5T PO (13:55)
[2020-06-21] MEDS ORDERED: MORPHINE SULF INJ 2 MG/ML SYRINGE 1ML IV PRN (17:15)
[2020-06-21] MEDS ORDERED: ACETAMINOPHEN 500 MG TAB PO PRN (17:15)
[2020-06-21] MEDS ORDERED: ONDANSETRON HCL 4 MG/2 ML VIAL IV PRN (17:15)
[2020-06-21] MEDS ORDERED: NITROGLYCERIN 0.4 MG SL TAB SL PRN (17:15)
[2020-06-21] MEDS: SODIUM CHLORIDE 0.9% 1,000 ML IV SCH (18:01)
[2020-06-21] MEDS: MEGESTROL ACETATE 20 MG TAB PO SCH (21:28)
[2020-06-21 22:00] VITALS: BP 105/55
[2020-06-21 23:00] VITALS: BP 127/76
[2020-06-22 05:14] VITALS: BP 132/72
[2020-06-22] MEDS: MORPHINE SULF INJ 2 MG/ML SYRINGE 1ML IV PRN (05:27)
[2020-06-22 06:32] LABS: Basophils # (auto) 0 10 ^3/uL (0-0.2); Basophils % (auto) 0.3 % (0.0-2.0); Eosinophils # (auto) 0 10 ^3/uL (0-0.8); Nucleated Red Blood Cells % 0.1 %
[2020-06-22 06:34] LABS: Eosinophils % (auto) 0.2 % (0.0-7.0); Hematocrit 26.7 % (36.0-46.0); Hemoglobin 8.2 g/dL (12.2-16.2); Lymphocytes # (auto) 1.2 10 ^3/uL (0.4-5.4); Lymphocytes % (auto) 8.8 % (10.0-50.0); Mean Corpuscular Hemoglobin 19.4 pg (28.0-32.0); Mean Corpuscular Hgb Conc. 30.7 g/dL (32.0-36.0); Mean Corpuscular Volume 63.2 fL (80.0-100.0); Monocytes % (auto) 7.6 % (0.0-12.0); Neutrophils # (auto) 11.3 10 ^3/uL (1.6-8.6); Neutrophils % (auto) 83.1 % (37.0-80.0); Platelet Count (auto) 347 10^3/uL (140-450); Red Blood Cells 4.22 10^6/uL (4.0-5.20); Red Cell Distribution Width 15.8 % (11.8-14.3); White Blood Cell 13.6 10^3/uL (4.4-10.8)
[2020-06-22 06:42] LABS: Calcium 8.4 mg/dL (8.5-10.1); Potassium 3.6 mmol/L (3.5-5.1)
[2020-06-22 06:43] LABS: BUN/Creatinine Ratio 25.5
[2020-06-22 08:15] VITALS: BP 113/66
[2020-06-22 09:00] VITALS: BP 113/66
[2020-06-22] MEDS: cefTRIAXone 1GM/50ML D5W 50 ML IV SCH (09:29)
[2020-06-22] MEDS: FAMOTIDINE 20 MG TAB PO SCH (09:32)
[2020-06-22] MEDS: DIGOXIN 0.125 MG TAB PO SCH (09:32)
[2020-06-22] MEDS: FOLIC ACID 1 MG TAB PO SCH (09:33)
[2020-06-22] MEDS: MEGESTROL ACETATE 20 MG TAB PO SCH ×2 (09:34→22:01)
[2020-06-22] MEDS ORDERED: clonazePAM 0.5 MG TAB PO SCH (10:00)
[2020-06-22 13:00] VITALS: BP 116/59
[2020-06-22] MEDS: HYDROcodone-ACET 5/325MG TAB PO PRN ×2 (13:41)
[2020-06-22 17:00] VITALS: BP 99/68
[2020-06-22] MEDS: SODIUM CHLORIDE 0.9% 1,000 ML IV SCH ×2 (19:55→20:05)
[2020-06-22 22:00] VITALS: BP 130/64
[2020-06-22] MEDS: levETIRAcetam 500 MG TAB PO SCH (22:01)
[2020-06-23 06:15] VITALS: BP 126/61
[2020-06-23] MEDS: cefTRIAXone 1GM/50ML D5W 50 ML IV SCH (08:41)
[2020-06-23 09:00] VITALS: BP 116/57
[2020-06-23] MEDS: FOLIC ACID 1 MG TAB PO SCH (09:44)
[2020-06-23] MEDS: levETIRAcetam 500 MG TAB PO SCH ×2 (09:44→21:03)
[2020-06-23] MEDS: clonazePAM 0.5 MG TAB PO SCH (09:53)
[2020-06-23] MEDS: DIGOXIN 0.125 MG TAB PO SCH (09:56)
[2020-06-23] MEDS: MEGESTROL ACETATE 20 MG TAB PO SCH ×2 (09:56→21:03)
[2020-06-23] MEDS: SODIUM CHLORIDE 0.9% 1,000 ML IV SCH ×2 (09:56→23:48)
[2020-06-23 13:00] VITALS: BP 99/51
[2020-06-23 17:00] VITALS: BP 111/54
[2020-06-23 22:00] VITALS: BP 102/48
[2020-06-24 05:00] VITALS: BP 106/42
[2020-06-24 08:00] VITALS: BP 113/60
[2020-06-24 09:00] VITALS: BP 113/60
[2020-06-24] MEDS: cefTRIAXone 1GM/50ML D5W 50 ML IV SCH (09:50)
[2020-06-24] MEDS: FOLIC ACID 1 MG TAB PO SCH (09:53)
[2020-06-24] MEDS: levETIRAcetam 500 MG TAB PO SCH ×2 (09:53→21:30)
[2020-06-24] MEDS: clonazePAM 0.5 MG TAB PO SCH (09:54)
[2020-06-24] MEDS: MEGESTROL ACETATE 20 MG TAB PO SCH ×2 (09:54→21:30)
[2020-06-24] MEDS: DIGOXIN 0.125 MG TAB PO SCH (09:55)
[2020-06-24] MEDS: FAMOTIDINE 20 MG TAB PO SCH (09:55)
[2020-06-24 13:00] VITALS: BP 106/60
[2020-06-24] MEDS: SODIUM CHLORIDE 0.9% 1,000 ML IV SCH (14:26)
[2020-06-24] MEDS: HALOPERIDOL 1 MG TAB PO SCH (21:30)
[2020-06-24 22:00] VITALS: BP 133/74
[2020-06-25] MEDS: SODIUM CHLORIDE 0.9% 1,000 ML IV SCH ×2 (01:18→14:28)
[2020-06-25 05:00] VITALS: BP 125/55
[2020-06-25] MEDS: cefTRIAXone 1GM/50ML D5W 50 ML IV SCH (08:07)
[2020-06-25] MEDS: FOLIC ACID 1 MG TAB PO SCH (08:07)
[2020-06-25] MEDS: levETIRAcetam 500 MG TAB PO SCH ×2 (08:07→22:08)
[2020-06-25] MEDS: HALOPERIDOL 1 MG TAB PO SCH ×2 (08:08→22:08)
[2020-06-25] MEDS: MEGESTROL ACETATE 20 MG TAB PO SCH ×2 (08:08→22:08)
[2020-06-25] MEDS: DIGOXIN 0.125 MG TAB PO SCH (08:08)
[2020-06-25] MEDS: MORPHINE SULF INJ 2 MG/ML SYRINGE 1ML IV PRN (08:09)
[2020-06-25 09:00] VITALS: BP 125/75
[2020-06-25 13:00] VITALS: BP 128/58
[2020-06-25] MEDS: HYDROcodone-ACET 5/325MG TAB PO PRN (13:44)
[2020-06-25 17:00] VITALS: BP 110/53
[2020-06-25 22:00] VITALS: BP 134/74
[2020-06-26] MEDS: SODIUM CHLORIDE 0.9% 1,000 ML IV SCH ×2 (03:55→11:50)
[2020-06-26 05:00] VITALS: BP 101/64
[2020-06-26 08:41] VITALS: BP 129/65
[2020-06-26] MEDS: FOLIC ACID 1 MG TAB PO SCH (09:59)
[2020-06-26] MEDS: cefTRIAXone 1GM/50ML D5W 50 ML IV SCH (09:59)
[2020-06-26] MEDS: HALOPERIDOL 1 MG TAB PO SCH ×2 (09:59→21:52)
[2020-06-26] MEDS: DIGOXIN 0.125 MG TAB PO SCH (10:00)
[2020-06-26] MEDS: FAMOTIDINE 20 MG TAB PO SCH (10:00)
[2020-06-26] MEDS: MEGESTROL ACETATE 20 MG TAB PO SCH ×2 (10:00→21:52)
[2020-06-26] MEDS: levETIRAcetam 500 MG TAB PO SCH (10:00)
[2020-06-26 13:00] VITALS: BP 112/56
[2020-06-26 17:13] VITALS: BP 127/58
[2020-06-26] MEDS: MORPHINE SULF INJ 2 MG/ML SYRINGE 1ML IV PRN (22:10)
[2020-06-26 22:15] VITALS: BP 121/70
[2020-06-27 05:00] VITALS: BP 120/75
[2020-06-27] MEDS: SODIUM CHLORIDE 0.9% 1,000 ML IV SCH ×2 (06:41→20:45)
[2020-06-27] MEDS: FOLIC ACID 1 MG TAB PO SCH (08:46)
[2020-06-27] MEDS: DIGOXIN 0.125 MG TAB PO SCH (08:47)
[2020-06-27] MEDS: MEGESTROL ACETATE 20 MG TAB PO SCH ×2 (08:47→22:00)
[2020-06-27 09:00] VITALS: BP 113/59
[2020-06-27] MEDS: cefTRIAXone 1GM/50ML D5W 50 ML IV SCH (09:00)
[2020-06-27] MEDS: HALOPERIDOL 1 MG TAB PO SCH ×2 (10:00→22:00)
[2020-06-27] MEDS: MORPHINE SULF INJ 2 MG/ML SYRINGE 1ML IV PRN (12:11)
[2020-06-27 13:00] VITALS: BP 138/78
[2020-06-27 17:44] VITALS: BP 137/72
[2020-06-27 20:00] VITALS: BP 135/76
[2020-06-27 22:00] VITALS: BP 135/74
[2020-06-28] MEDS: SODIUM CHLORIDE 0.9% 1,000 ML IV SCH (08:27)
[2020-06-28] MEDS: cefTRIAXone 1GM/50ML D5W 50 ML IV SCH (08:27)
[2020-06-28 08:45] VITALS: BP 151/81
[2020-06-28] MEDS: MEGESTROL ACETATE 20 MG TAB PO SCH (10:25)
[2020-06-28] MEDS: HALOPERIDOL 1 MG TAB PO SCH (10:25)
[2020-06-28] MEDS: FAMOTIDINE 20 MG TAB PO SCH (10:25)
[2020-06-28] MEDS: DIGOXIN 0.125 MG TAB PO SCH (10:25)
[2020-06-28] MEDS: FOLIC ACID 1 MG TAB PO SCH (10:25)
[2020-06-28 12:47] VITALS: BP 133/80
[2020-06-28 17:00] VITALS: BP 136/85
== END 2020-06-28 19:25 | DRG 70 ==
LOC: ER 09:12 → EDBD 09:12 → EDUNIT# 09:12 → TELE 17:16 → TELE-WESTW 20:10
PROVIDERS: ADMIT Nurse Practitioner Acute Care; ATTEND Internal Medicine Cardiovascular Disease
DX: G93.41 Metabolic encephalopathy (principal); N17.0 Acute kidney failure with tubular necrosis; N18.4 Chronic kidney disease, stage 4 (severe); N39.0 Urinary tract infection, site not specified; D63.8 Anemia in other chronic diseases classified elsewhere; F03.90 Unspecified dementia, unspecified severity, without behavioral disturbance, psychotic disturbance, mood disturbance, and anxiety; E78.5 Hyperlipidemia, unspecified; Z20.822 Contact with and (suspected) exposure to COVID-19; I12.9 Hypertensive chronic kidney disease with stage 1 through stage 4 chronic kidney disease, or unspecified chronic kidney disease; F17.200 Nicotine dependence, unspecified, uncomplicated; E78.00 Pure hypercholesterolemia, unspecified; F09 Unspecified mental disorder due to known physiological condition; E86.0 Dehydration; I25.10 Atherosclerotic heart disease of native coronary artery without angina pectoris; M19.90 Unspecified osteoarthritis, unspecified site; M41.9 Scoliosis, unspecified; M81.0 Age-related osteoporosis without current pathological fracture; Z79.899 Other long term (current) drug therapy; Z87.11 Personal history of peptic ulcer disease; K21.9 Gastro-esophageal reflux disease without esophagitis
CPT/HCPCS: 36415; 70450; 71045; 80048; 80053; 80307; 81001; 82550; 83735; 84443; 84484; 85025; 86850; 86900; 86901; 87086; 87426; 93005; 95819; 96361; 96365; G0378; J0696; J7060

== ENCOUNTER 2020-09-11 14:56 | Inpatient (IN) | payer MEDICARE, MEDICAID ==
[~2020-09-11] VITALS: Ht 165.1 cm; Wt 41.9 kg
[~2020-09-11 14:56] MED LIST changes: +DIGO0.12 PO; +HAL5T PO; +MEGE40TA4 PO
[2020-09-11 15:33] LABS: Basophils # (auto) 0.1 10 ^3/uL (0-0.2); Eosinophils # (auto) 0.2 10 ^3/uL (0-0.8); Hemoglobin 7.4 g/dL (12.2-16.2); Lymphocytes # (auto) 1.2 10 ^3/uL (0.4-5.4); Lymphocytes % (auto) 16.6 % (10.0-50.0); Monocytes # (auto) 0.8 10 ^3/uL (0-1.3); Red Cell Distribution Width 17.8 % (11.8-14.3); White Blood Cell 7.3 10^3/uL (4.4-10.8)
[2020-09-11 15:35] LABS: Basophils % (auto) 0.7 % (0.0-2.0); Eosinophils % (auto) 3.1 % (0.0-7.0); Hematocrit 23.1 % (36.0-46.0); Mean Corpuscular Hemoglobin 19.2 pg (28.0-32.0); Mean Corpuscular Hgb Conc. 32.2 g/dL (32.0-36.0); Mean Corpuscular Volume 59.6 fL (80.0-100.0); Monocytes % (auto) 10.4 % (0.0-12.0); Neutrophils % (auto) 69.2 % (37.0-80.0); Red Blood Cells 3.87 10^6/uL (4.0-5.20)
[2020-09-11] MEDS ORDERED: MORPHINE SULF INJ 2 MG/ML SYRINGE 1ML IV ONE (15:45)
[2020-09-11] MEDS ORDERED: ONDANSETRON HCL 4 MG/2 ML VIAL IV ONE (15:45)
[2020-09-11] MEDS ORDERED: LORazepam 2MG/ML-1ML VIAL IV ONE (15:45)
[2020-09-11] MEDS ORDERED: SODIUM CHLORIDE 0.9% 1,000 ML IV ONE (15:45)
[2020-09-11 15:48] LABS: Albumin 2.9 g/dL (3.4-5.0); Anion Gap 4 (5-15); Blood Urea Nitrogen 26 mg/dL (7-18); Calcium 8.2 mg/dL (8.5-10.1); Carbon Dioxide 29 mmol/L (21-32); Chloride 108 mmol/L (98-107); Glucose 97 mg/dL (74-106); Potassium 3.7 mmol/L (3.5-5.1); Sodium 141 mmol/L (136-145)
[2020-09-11 15:50] LABS: BUN/Creatinine Ratio 34.7; GFR African American 97 mL/min; GFR Non-African American 80 mL/min
[2020-09-11 15:58] LABS: Alanine Aminotransferase 12 U/L (13-56); Alkaline Phosphatase 62 U/L (45-117); Aspartate Aminotransferase 14 U/L (15-37); Bilirubin, Total 0.4 mg/dL (0.2-1.0); Total Protein 6.5 g/dL (6.4-8.2)
[2020-09-11 15:59] LABS: Partial Thromboplastin Time 24.2 sec (23.0-31.2)
[2020-09-11 16:44] LABS: Urine Bacteria FEW /hpf (None Seen); Urine Blood Negative /uL (Negative); Urine Specific Gravity 1.007 (1.001-1.035); Urine WBC 50 /hpf (0 - 5)
[2020-09-11] MEDS ORDERED: NITROGLYCERIN 0.4 MG SL TAB SL PRN (17:00)
[2020-09-11] MEDS ORDERED: ONDANSETRON HCL 4 MG/2 ML VIAL IV PRN (17:00)
[2020-09-11] MEDS ORDERED: hydrALAZINE HCL 20 MG/ML VL IV PRN (17:00)
[2020-09-11] MEDS ORDERED: MORPHINE SULF INJ 2 MG/ML SYRINGE 1ML IV PRN (17:00)
[2020-09-11] MEDS: LORazepam 2MG/ML-1ML VIAL IV PRN ×2 (17:54→18:17)
[2020-09-11 18:10] LABS: % Iron Saturation 5.7 % (15-50)
[2020-09-11] MEDS: FERROUS SULFATE 325mg EC TAB PO SCH (18:16)
[2020-09-11] MEDS: HALOPERIDOL 5 MG TAB PO PRN (18:17)
[2020-09-11] MEDS: MORPHINE SULF INJ 2 MG/ML SYRINGE 1ML IV PRN (18:17)
[2020-09-11 22:35] VITALS: BP 97/54
[2020-09-12] VITALS: BP 97/54
[2020-09-12 05:00] VITALS: BP 106/60
[2020-09-12 06:57] LABS: Albumin 2.9 g/dL (3.4-5.0); Calcium 8.5 mg/dL (8.5-10.1); Potassium 3.5 mmol/L (3.5-5.1)
[2020-09-12] MEDS: FOLIC ACID 1 MG TAB PO SCH (07:00)
[2020-09-12 07:02] LABS: Bilirubin, Total 0.4 mg/dL (0.2-1.0); Total Protein 6.7 g/dL (6.4-8.2)
[2020-09-12] MEDS: FERROUS SULFATE 325mg EC TAB PO SCH ×2 (08:00→18:25)
[2020-09-12 09:00] VITALS: BP 86/52
[2020-09-12] MEDS: PANTOPRAZOLE 40 MG TAB PO SCH (09:12)
[2020-09-12] MEDS: HALOPERIDOL 5 MG TAB PO PRN (12:09)
[2020-09-12 13:00] VITALS: BP 119/68
[2020-09-12] MEDS ORDERED: POTA10TA51 PO (13:15)
[2020-09-12] MEDS ORDERED: MAGNSUS48 PO (13:15)
[2020-09-12] MEDS ORDERED: NITR1SPR TL (13:15)
[2020-09-12] MEDS ORDERED: HYDR-4902 PO (13:15)
[2020-09-12] MEDS ORDERED: ACET-1156 PO (13:15)
[2020-09-12] MEDS ORDERED: CLON0.5T3 PO (13:15)
[2020-09-12] MEDS ORDERED: BISA10SU45 RE (13:15)
[2020-09-12] MEDS ORDERED: MEGE20TA5 PO (13:15)
[2020-09-12] MEDS ORDERED: DOCU100C10 PO (13:15)
[2020-09-12] MEDS ORDERED: PANT40TA2 PO (13:15)
[2020-09-12] MEDS: SODIUM CHLORIDE 0.9% 1,000 ML IV SCH (13:38)
[2020-09-12] MEDS ORDERED: NITROGLYCERIN 0.4 MG SL TAB SL PRN (14:15)
[2020-09-12] MEDS ORDERED: POTASSIUM CHL 10 Meq TABLET PO ONE (14:45)
[2020-09-12] MEDS: clonazePAM 0.5 MG TAB PO PRN (15:13)
[2020-09-12 16:49] VITALS: BP 141/85
[2020-09-12 21:39] VITALS: BP 130/63
[2020-09-12] MEDS: MEGESTROL ACET 400MG/10ML ORAL SUSP PO SCH (21:39)
[2020-09-12] MEDS: QUEtiapine FUMARATE 25 MG TAB PO SCH (21:40)
[2020-09-13] MEDS: MORPHINE SULF INJ 2 MG/ML SYRINGE 1ML IV PRN (00:42)
[2020-09-13 02:33] VITALS: BP 132/65
[2020-09-13] MEDS: HALOPERIDOL 5 MG TAB PO PRN (02:41)
[2020-09-13 02:48] VITALS: BP 122/62
[2020-09-13] MEDS: SODIUM CHLORIDE 0.9% 1,000 ML IV SCH ×2 (03:10→20:31)
[2020-09-13 05:25] VITALS: BP 145/86
[2020-09-13 05:27] VITALS: BP 145/84
[2020-09-13 06:56] LABS: Eosinophils # (auto) 0.1 10 ^3/uL (0-0.8); White Blood Cell 9.6 10^3/uL (4.4-10.8)
[2020-09-13 07:00] LABS: Basophils # (auto) 0.1 10 ^3/uL (0-0.2); Basophils % (auto) 0.7 % (0.0-2.0); Eosinophils % (auto) 0.9 % (0.0-7.0); Hematocrit 30.9 % (36.0-46.0); Hemoglobin 10.1 g/dL (12.2-16.2); Lymphocytes # (auto) 1.7 10 ^3/uL (0.4-5.4); Lymphocytes % (auto) 17.3 % (10.0-50.0); Mean Corpuscular Hemoglobin 20.6 pg (28.0-32.0); Mean Corpuscular Hgb Conc. 32.6 g/dL (32.0-36.0); Mean Corpuscular Volume 63.4 fL (80.0-100.0); Monocytes % (auto) 10.5 % (0.0-12.0); Neutrophils # (auto) 6.8 10 ^3/uL (1.6-8.6); Neutrophils % (auto) 70.6 % (37.0-80.0); Red Blood Cells 4.87 10^6/uL (4.0-5.20)
[2020-09-13] MEDS: FOLIC ACID 1 MG TAB PO SCH (07:00)
[2020-09-13 07:10] LABS: Red Cell Distribution Width 21.5 % (11.8-14.3)
[2020-09-13 07:21] LABS: BUN/Creatinine Ratio 40.3; Calcium 8.7 mg/dL (8.5-10.1); Magnesium 2.3 mg/dL (1.6-2.6); Potassium 3.4 mmol/L (3.5-5.1)
[2020-09-13] MEDS: FERROUS SULFATE 325mg EC TAB PO SCH ×2 (08:00→18:37)
[2020-09-13] MEDS: POTASSIUM CHL 10 Meq TABLET PO SCH (10:55)
[2020-09-13] MEDS: PANTOPRAZOLE 40 MG TAB PO SCH (10:56)
[2020-09-13] MEDS: DIGOXIN 0.125 MG TAB PO SCH (10:57)
[2020-09-13] MEDS: MEGESTROL ACET 400MG/10ML ORAL SUSP PO SCH ×2 (10:58→21:16)
[2020-09-13] MEDS: QUEtiapine FUMARATE 25 MG TAB PO SCH (21:16)
[2020-09-13 22:00] VITALS: BP 115/74
[2020-09-14 05:00] VITALS: BP 110/64
[2020-09-14] MEDS: FOLIC ACID 1 MG TAB PO SCH (07:00)
[2020-09-14] MEDS: FERROUS SULFATE 325mg EC TAB PO SCH ×2 (08:19→18:09)
[2020-09-14] MEDS: DIGOXIN 0.125 MG TAB PO SCH (10:00)
[2020-09-14] MEDS: MEGESTROL ACET 400MG/10ML ORAL SUSP PO SCH ×2 (10:00→22:47)
[2020-09-14] MEDS: PANTOPRAZOLE 40 MG TAB PO SCH (10:00)
[2020-09-14] MEDS: POTASSIUM CHL 10 Meq TABLET PO SCH (10:00)
[2020-09-14] MEDS: MORPHINE SULF INJ 2 MG/ML SYRINGE 1ML IV PRN (10:16)
[2020-09-14] MEDS: SODIUM CHLORIDE 0.9% 1,000 ML IV SCH (12:47)
[2020-09-14 13:00] VITALS: BP_SYST 150; BP_SYST 96; BP_DIAS 58; BP_DIAS 85
[2020-09-14] MEDS ORDERED: HALOPERIDOL 1 MG TAB PO PRN (15:45)
[2020-09-14 17:00] VITALS: BP_SYST 119; BP_SYST 120; BP_DIAS 73; BP_DIAS 88
[2020-09-14 22:00] VITALS: BP 128/63
[2020-09-14] MEDS: QUEtiapine FUMARATE 25 MG TAB PO SCH (22:47)
[2020-09-15 05:00] VITALS: BP 106/61
[2020-09-15] MEDS: SODIUM CHLORIDE 0.9% 1,000 ML IV SCH ×2 (05:47→17:04)
[2020-09-15] MEDS: FOLIC ACID 1 MG TAB PO SCH (06:08)
[2020-09-15] MEDS: FERROUS SULFATE 325mg EC TAB PO SCH (08:00)
[2020-09-15 09:00] VITALS: BP 117/65
[2020-09-15] MEDS: POTASSIUM CHL 10 Meq TABLET PO SCH (09:36)
[2020-09-15] MEDS: MEGESTROL ACET 400MG/10ML ORAL SUSP PO SCH (09:36)
[2020-09-15] MEDS: DIGOXIN 0.125 MG TAB PO SCH (09:36)
[2020-09-15] MEDS: PANTOPRAZOLE 40 MG TAB PO SCH (09:36)
[2020-09-15] MEDS: MORPHINE SULF INJ 2 MG/ML SYRINGE 1ML IV PRN (11:55)
[2020-09-15 13:00] VITALS: BP 125/75
[2020-09-15 17:00] VITALS: BP 151/63
[2020-09-15] MEDS: clonazePAM 0.5 MG TAB PO PRN (17:03)
== END 2020-09-15 18:25 | DRG 559 ==
LOC: EDBD 14:56 → ER 14:56 → OVERFLOW 16:51 → EAST 22:32
PROVIDERS: ADMIT Nurse Practitioner Acute Care; ATTEND Internal Medicine Cardiovascular Disease
PROC: 30233N1 Transfusion of Nonautologous Red Blood Cells into Peripheral Vein, Percutaneous Approach (ICD-10-PCS; principal; 2020-09-13)
DX: T84.020A Dislocation of internal right hip prosthesis, initial encounter (principal); I50.33 Acute on chronic diastolic (congestive) heart failure; E44.0 Moderate protein-calorie malnutrition; Z68.1 Body mass index [BMI] 19.9 or less, adult; I13.0 Hypertensive heart and chronic kidney disease with heart failure and stage 1 through stage 4 chronic kidney disease, or unspecified chronic kidney disease; I42.0 Dilated cardiomyopathy; R64 Cachexia; D50.9 Iron deficiency anemia, unspecified; N18.30 Chronic kidney disease, stage 3 unspecified; M81.0 Age-related osteoporosis without current pathological fracture; E78.5 Hyperlipidemia, unspecified; F03.90 Unspecified dementia, unspecified severity, without behavioral disturbance, psychotic disturbance, mood disturbance, and anxiety; I48.91 Unspecified atrial fibrillation; Z96.643 Presence of artificial hip joint, bilateral; Z96.651 Presence of right artificial knee joint; Y83.8 Other surgical procedures as the cause of abnormal reaction of the patient, or of later complication, without mention of misadventure at the time of the procedure; Z79.899 Other long term (current) drug therapy; Z87.11 Personal history of peptic ulcer disease; Y92.89 Other specified places as the place of occurrence of the external cause
CPT/HCPCS: 36415; 51702; 71045; 72170; 72192; 80048; 80053; 80162; 81001; 83540; 83550; 83735; 84484; 85025; 85045; 85610; 85730; 86850; 86900; 86901; 86920; 87081; 87426; 93005; 96374; 96375; 96376; G0378; J2405